=== PATIENT | male | born 1990 | race Hispanic/Latino ===

== ENCOUNTER 2024-07-27 17:40 | Inpatient (IN) | payer BC ==
[~2024-07-27] VITALS: Ht 177.8 cm; Wt 182.9 kg
[2024-07-27] MEDS ORDERED: morPHINE 2 MG SYG IVP ONE (18:00)
[2024-07-27 18:02] LABS: ADD UA MICROSCOPIC YES; APPEARANCE,URINE CLEAR (CLEAR); BILIRUBIN,URINE NEGATIVE (NEGATIVE); COLOR,URINE YELLOW (YELLOW); GLUCOSE, URINE (UA) NEGATIVE (NEGATIVE); KETONES,URINE 40 mg/dL (NEGATIVE); LEUKOCYTE ESTERASE ,URINE NEGATIVE Leu/uL (NEGATIVE); NITRATE,URINE NEGATIVE (NEGATIVE); OCCULT BLOOD,URINE SMALL (NEGATIVE); PH,URINE 5.5 (5.0-8.0); PROTEIN,URINE 30 mg/dL (NEGATIVE); UROBILINOGEN,URINE 0.2 mg/dL (0.2-1.0)
[2024-07-27 18:03] LABS: MUCUS,URINE RARE LPF (None Seen); SQUAMOUS EPITHELIAL CELL,UR FEW /HPF (0-2)
--- NOTE | 2024-07-27 18:17 | NUR ---
PATIENT STATES HAS RECENTLY TAKEN TORADOL WITHOUT ANY ALLERGIC OR ADVERSE REACTIONS.
[2024-07-27] MEDS: 0.9%NACL 1000ML 1,000 ML IV ONE (18:18)
[2024-07-27] MEDS: hydroMORPHone 1 MG INJ IVP ONE (18:23)
[2024-07-27] MEDS: ketOROlac 15MG/ML VIAL (15MG/ML) IV ONE (18:23)
[2024-07-27 18:27] LABS: BASOPHILS # (AUTO) 0.06 K/uL (0.00-0.20); BASOPHILS % (AUTO) 0.6 % (0.0-5.0); EOSINOPHILS # (AUTO) 0.08 K/uL (0.00-0.70); EOSINOPHILS % (AUTO) 0.9 % (0.0-8.0); HEMATOCRIT 40.2 % (42-54); IMMATURE GRANULOCYTE ABSOLUTE 0.04 K/uL (0-1); LYMPHOCYTES # (AUTO) 2.3 K/uL (1.0-4.8); LYMPHOCYTES % (AUTO) 24.5 % (21.0-51.0); MEAN CORPUSCULAR HGB CONC 33.8 g/dL (32.0-36.0); MEAN CORPUSCULAR VOLUME 88.7 fL (79-99); MONOCYTES # (AUTO) 0.7 K/uL (0.1-1.0); NEUTROPHILS # (AUTO) 6.2 K/uL (1.8-7.7); NEUTROPHILS % (AUTO) 66.6 % (40.0-77.0); PLATELET COUNT (AUTO) 238 K/uL (130-400); RED BLOOD CELL COUNT(AUTO) 4.53 MIL/uL (4.50-6.20); RED CELL DISTRIBUTION WIDTH 13.4 % (11.0-15.5); WHITE BLOOD COUNT (AUTO) 9.4 K/uL (4.8-10.8)
[2024-07-27 18:36] LABS: CREATININE 1.4 mg/dL (0.5-1.3); POTASSIUM 3.7 mmol/L (3.5-5.1)
--- NOTE | 2024-07-27 19:24 | HMCIMG ---
ULTRASOUND RENAL LIMITED INDICATION: Polyarthritis/hydronephrosis evaluation TECHNIQUE: Routine ultrasound of the kidneys with grayscale and color Doppler imaging was performed in real-time, and subsequently made available for review. COMPARISON: None FINDINGS: Examination is limited by patient body habitus. The right kidney measures 13.4 x 6 0.5, 0.1 cm. No abnormal mass demonstrated. No evidence for hydronephrosis or shadowing stone. The left kidney measures 12.5 x 7.2 x 5.9 cm. No abnormal mass demonstrated. No evidence for hydronephrosis or shadowing stone. Urinary bladder is not fully distended. No free fluid demonstrated. IMPRESSION: Limitations as reported. No sonographic evidence for hydronephrosis or any evidence to suggest pyelonephritis.
--- NOTE | 2024-07-27 20:35 | ERN ---
General Chief Complaint: Flank Pain Stated Complaint: RT FLANK PAIN Time Seen by MD: 17:45 Time Seen by Midlevel: 17:45 Source: patient History of Present Illness Initial Comments The patient is a morbidly obese 34-year-old male with no significant past medical history presenting to the emergency department for evaluation of right flank pain. The patient was seen at an emergency department in [facility] where he was diagnosed with a 7 mm stone in the right ureter. He was discharged home on pain medication that has not helped him over the last 24 hours. He reports today with increased pain. Denies any other symptoms. Allergies: Coded Allergies: ibuprofen (Unverified Allergy, Unknown, 07/27/24) Past Medical History Past Medical History: Diabetes-Type II, High Cholesterol, Hypertension, Kidney Stone Past Surgical History: None ROS Dictation CONSTITUTIONAL: Negative except for HPI HEAD/FACE: Negative except for HPI EENT: Negative except for HPI RESPIRATORY: Negative except for HPI GASTROINTESTINAL/ABDOMINAL: Negative except for HPI GENITOURINARY: Negative except for HPI MUSCULOSKELETAL: Negative except for HPI INTEGUMENTARY: Negative except for HPI NEUROLOGICAL/PSYCH: Negative except for HPI HEMATOLOGIC/LYMPHATIC: Negative except for HPI All Systems Negative, Except as noted above. 13 point review of systems assessed and all negative except for above. Physical Exam Physical Exam Dictation Vital Signs reviewed General Appearance: Alert, oriented x 3, no acute distress, well developed, nourished. Head and Face: non-traumatic. Eyes: PERRL, pink conjunctivas, eyelid no trauma, anterior chamber with arcus senilis. Ears: Pinnas intact and no signs of trauma or erythema ear canals clear and no discharge TM no erythema Nose: No discharge, no bleeding. Oropharynx: Mouth normal, tongue pink, pharynx clear,no erythema, tonsils no exudates, no abscesses noted, mucous membrane moist Neck: Supple, non-tender, no thyromegaly, no masses, no JVD, no bruits Breast:Deferred Chest:No tenderness, no crepitus, no paradoxical movement, no retractions Lungs:Clear, well-ventilated, symmetric, no rales, no wheezing, no rhonchi, no stridor, good breath sounds bilaterally Heart: Regular rate, regular rhythm, no murmur, no gallops Vascular: no peripheral edema, Abdomen: Soft, positive bowel sounds, nondistended, no guarding, Right CVA tenderness, no rebound, no masses no hepatomegaly, no splenomegaly, no Evangelista's sign, no hernias. Rectal: Deferred Genital: Deferred Neurological: Normal speech, motor function intact, sensory function intact Musculoskeletal: Neck nontender, full range of motion, back nontender, full range of motion, Extremities: nontender, full range of motion Skin: Color pink, dry, no turgor, no rash, no lacerations, no abrasions, no contusions. Lymphatic: Deferred Results Laboratory and Microbiology Lab and Micro Result Laboratory Tests Test 07/27/24 17:54 07/27/24 18:12 Urine Color YELLOW (YELLOW) Urine Appearance CLEAR (CLEAR) Urine pH 5.5 (5.0-8.0) Urine Specific [place] 1.040 (1.001-1.031) Urine Protein 30 mg/dL (NEGATIVE) H Urine Glucose (UA) NEGATIVE mg/dL (NEGATIVE) Urine Ketones 40 mg/dL (NEGATIVE) H Urine Occult Blood SMALL (NEGATIVE) H Urine Nitrate NEGATIVE (NEGATIVE) Urine Bilirubin NEGATIVE mg/dL (NEGATIVE) Urine Urobilinogen 0.2 mg/dL (0.2-1.0) Urine Leukocyte Esterase NEGATIVE Xiomara/uL Urine RBC 6-10 /HPF (0-1) H Urine WBC 6-10 /HPF (0-1) H Urine Squamous Epithelial Cells FEW /HPF (0-2) Urine Bacteria None /HPF (None Seen) White Blood Count 9.4 K/uL (4.8-10.8) Red Blood Count 4.53 MIL/uL (4.50-6.20) Hemoglobin 13.6 g/dL (14.0-18.0) L Hematocrit 40.2 % (42-54) L Mean Corpuscular Volume 88.7 fL (79-99) Mean Corpuscular Hemoglobin 30.0 pg (27.0-33.0) Mean Corpuscular Hemoglobin Concent 33.8 g/dL (32.0-36.0) Red Cell Distribution Width 13.4 % (11.0-15.5) Platelet Count 238 K/uL (130-400) Mean Platelet Volume 10.1 fL (7.5-10.5) Immature Granulocyte % (Auto) 0.4 % (0-1) Neutrophils (%) (Auto) 66.6 % (40.0-77.0) Lymphocytes (%) (Auto) 24.5 % (21.0-51.0) Monocytes (%) (Auto) 7.0 % (3.0-13.0) Eosinophils (%) (Auto) 0.9 % (0.0-8.0) Basophils (%) (Auto) 0.6 % (0.0-5.0) Neutrophils # (Auto) 6.2 K/uL (1.8-7.7) Lymphocytes # (Auto) 2.3 K/uL (1.0-4.8) Monocytes # (Auto) 0.7 K/uL (0.1-1.0) Eosinophils # (Auto) 0.08 K/uL (0.00-0.70) Basophils # (Auto) 0.06 K/uL (0.00-0.20) Absolute Immature Granulocyte (auto 0.04 K/uL (0-1) Nucleated Red Blood Cells 0.0 % (0.0-0.19) Sodium Level 137 mmol/L (136-145) Potassium Level 3.7 mmol/L (3.5-5.1) Chloride Level 101 mmol/L (101-111) Carbon Dioxide Level 31 mmol/L (21-32) Blood Urea Nitrogen 13 mg/dL (7-18) Creatinine 1.4 mg/dL (0.5-1.3) H Glomerular Filtration Rate Calc 68 mL/min (>90) Random Glucose 105 mg/dL (70-105) Lactic Acid Level 1.9 mmol/L (0.8-2.5) Total Calcium 8.5 mg/dL (8.5-10.1) Labs Reviewed?: Yes MDM MDM: Differential diagnosis: Ureter stone, pyelonephritis, hydronephrosis, acute kidney injury Rationale: Tests considered and ordered secondary to shared decision making include: Previous outside records reviewed: Old ER visits. Risk of complication and/or morbidity or mortality of patient management: None Medications-Per medication reconciliation Need for hospitalization: Patient does meet criteria for hospitalization. Need for emergency major/minor surgery: No There are no social concerns with this patient. Prescription drug management Prescriptions will include symptomatic care Patient's prior external medical records from other ER visits were reviewed by me as indicated. Prior testing and results from previous visits were reviewed. Prior tests were taken into account with medical decision making and resource utilization, independent historian/historians were used to obtain complete medical history. I independently interpreted the test that were performed, results were reviewed by me and considered findings on radiology if ordered. Medical management and examination interpretation discussions were had by me with other qualified healthcare professionals as indicated for the patient's care. ED Course Orders Procedure Category Date Status Time Cbc With Differential LAB 07/27/24 Complete 17:51 Basic Metabolic Panel LAB 07/27/24 Complete 17:51 Urinalysis Profile LAB 07/27/24 Complete 17:51 Lactic Acid LAB 07/27/24 Complete 17:51 Morphine 2mg Syg PHA 07/27/24 Complete (Morphine 2mg Syg) 18:00 0.9%Nacl 1000ml (Ns PHA 07/27/24 Complete 1000ml) 18:00 Culture Urine ROXANA 07/27/24 Logged 18:04 Ketorolac PHA 07/27/24 Complete Tromethamine 15mg/Ml 18:30 Hydromorphone 1 Mg PHA 07/27/24 Complete Inj (Dilaudid 1mg Inj 18:30 [employer] 07/27/24 Resulted 18:34 Current Medications Medications (Trade) Dose Ordered Sig/Melita Route PRN Reason Start Time Stop Time Status Last Admin Dose Admin Hydromorphone HCl (DiLAUDid 1MG INJ) 1 mg ONCE ONCE IVP 07/27/24 18:30 07/27/24 18:31 DC 07/27/24 18:23 Ketorolac Tromethamine (toRADol) 15 mg ONCE ONCE IV 07/27/24 18:30 07/27/24 18:31 DC 07/27/24 18:23 Morphine Sulfate (morPHINE 2MG SYG) 2 mg ONCE ONCE IVP 07/27/24 18:00 07/27/24 18:11 DC Sodium Chloride 1,000 ml @ 0 mls/hr ONCE ONCE IV 07/27/24 18:00 07/27/24 18:01 DC 07/27/24 18:18 Vital Signs Date Time Temp Pulse Resp B/P (MAP) Pulse Ox O2 Delivery O2 Flow Rate FiO2 07/27/24 17:43 98.8 79 20 167/92 98 Room Air [place] [id number] [address] [id number] IMAGING REPORT Signed PATIENT: CHASIDY MCKEON MR#: [id number] : 1990 SEX: M AGE: 34 LOCATION: [facility] ORDER 34 STATUS: REG ER REPORT#: [id number] SERVICE 33 REASON: r/o pyelonephritis vs hydronephrosis secondary to ureter stone ORDERING PHYSICIAN: NEIL POST PROCEDURE: RETROLTD - US RETROPERITONEAL LTD ULTRASOUND RENAL LIMITED INDICATION: Polyarthritis/hydronephrosis evaluation TECHNIQUE: Routine ultrasound of the kidneys with grayscale and color Doppler imaging was performed in real-time, and subsequently made available for review. COMPARISON: None FINDINGS: Examination is limited by patient body habitus. The right kidney measures 13.4 x 6 0.5, 0.1 cm. No abnormal mass demonstrated. No evidence for hydronephrosis or shadowing stone. The left kidney measures 12.5 x 7.2 x 5.9 cm. No abnormal mass demonstrated. No evidence for hydronephrosis or shadowing stone. Urinary bladder is not fully distended. No free fluid demonstrated. IMPRESSION: Limitations as reported. No sonographic evidence for hydronephrosis or any evidence to suggest pyelonephritis. DICTATED BY: OLIVIA YARBROUGH MD DATE: 07/27/241918 ELECTRONICALLY SIGNED BY: OLIVIA YARBROUGH MD DATE: 07/27/241923 DX & DISP Disposition: Inpatient Decision to Admit Date: July 27, 2024 Departure Impression: Primary Impression: Intractable abdominal pain Additional Impression: Right ureteral stone Condition: Stable Referrals: [facility] RN (PCP) Time of Disposition: 20:34 I have reviewed the case, and I agree with, Diagnosis and Plan I performed the substantive portion of the visit. I have reviewed and personally made and approve the management plan that is documented in the note by myself or the BONG. I acknowledge for responsibility for the patient's management plan. NEIL POST July 27, 2024 20:35
[2024-07-27] MEDS ORDERED: TEMAZepam 15 MG CAPSULE PO PRN (21:30)
[2024-07-27] MEDS ORDERED: acetaMINOPHEN 325 MG TAB PO PRN (21:30)
[2024-07-27] MEDS ORDERED: LAbetaLOL 20MG SYG IV PRN (21:30)
[2024-07-27] MEDS ORDERED: acetaMINOPHEN 650 MG SUPPOSITORY RC PRN (21:30)
[2024-07-27] MEDS ORDERED: doCUSate SODIUM 100 MG CAP PO PRN (21:30)
--- NOTE | 2024-07-27 21:42 | HP ---
[facility] HISTORY AND PHYSICAL Date of Service: July 27, 2024 Time of Service: 21:41 PCP: Dr. Jess Nguyen PCP: Dr. Riddle and Dr. Julia Ramirez HISTORY OF PRESENT ILLNESS: Mr. Hodge is a morbidly obese 34-year-old male with with history of morbid obesity, DM type 2, hypercholesteremia, hypertension, kidney stone presented to ED for evaluation of right flank pain. The patient was seen at an emergency department in [facility] where he was diagnosed with a 7 mm stone in the right ureter. He was discharged home on pain medication that has not helped him over the last 24 hours. He reports today with increased pain which prompted the ED admission. The patient denied any other pain, problem or concern. Renal sonogram: No sonographic evidence for hydronephrosis or any evidence to suggest pyelonephritis. In ED the patient was administered NS1 L bolus, Dilaudid 1 mg IV, morphine 2 mg IV, and Toradol 15 mg IV. ED provider request patient be admitted with the diagnosis intractable abdominal pain and right ureteral stone. I went to assess the patient at bedside the patient appeared comfortable, breathing was even unlabored, in no distress. Patient reports feeling better after the medications administrations. I informed patient of labs, diagnostics, and plan of care. He verbalized understanding and is in agreement with the plan. Plan and assessment are listed below. REVIEW OF SYSTEMS 12-point ROS reviewed with patient. All pertinent positives mentioned above. Otherwise negative, noncontributory, non-pertinent. PAST MEDICAL HISTORY: As mentioned above PAST SURGICAL HISTORY: None PAST SOCIAL HISTORY: Patient denies alcohol, tobacco, illicit drug use Coded Allergies: ibuprofen (Unverified Allergy, Unknown, 07/27/24) PHYSICAL EXAM GENERAL APPEARANCE: The patient is awake, alert, and oriented, in no acute cardiopulmonary distress. NEUROLOGICAL: Cranial nerves II-XII grossly intact. Motor is 5/5 in bilateral upper and lower extremities proximal to distal. No sensory deficits. HEENT: Face is symmetric. Pupils are equal and reactive. Extraocular movements are intact. NECK: Supple. No JVD. No thyromegaly. No submental, submandibular, pre- /postauricular, occipital or supraclavicular lymphadenopathy. CHEST: Normal chest expansion. No Telemetry. LUNGS: Absence of any rales, rhonchi or any wheezing. CARDIOVASCULAR: Regular. S1 and S2 normal. No appreciable rubs, murmurs or gallops. ABDOMEN: Morbid obese. Soft, nontender, and nondistended. There is no rebound, voluntary guarding, or rigidity. : Deferred. No Hernandez. EXTREMITIES: Non-edematous and not cyanotic. No clubbing. Good capillary refill. SKIN: No skin breakdown. Vital Sign (Last 24 Hours) 07/27/24 17:43 Temp 98.8 Pulse 79 Resp 20 B/P (MAP) 167/92 Pulse Ox 98 O2 Delivery Room Air LABS: Laboratory: Test 07/27/24 18:12 07/27/24 17:54 Range/Units White Blood Count 9.4 4.8-10.8 K/uL Red Blood Count 4.53 4.50-6.20 MIL/uL Hemoglobin 13.6 L 14.0-18.0 g/dL Hematocrit 40.2 L 42-54 % Mean Corpuscular Volume 88.7 79-99 fL Mean Corpuscular Hemoglobin 30.0 27.0-33.0 pg Mean Corpuscular Hemoglobin Concent 33.8 32.0-36.0 g/dL Red Cell Distribution Width 13.4 11.0-15.5 % Platelet Count 238 130-400 K/uL Mean Platelet Volume 10.1 7.5-10.5 fL Immature Granulocyte % (Auto) 0.4 0-1 % Neutrophils (%) (Auto) 66.6 40.0-77.0 % Lymphocytes (%) (Auto) 24.5 21.0-51.0 % Monocytes (%) (Auto) 7.0 3.0-13.0 % Eosinophils (%) (Auto) 0.9 0.0-8.0 % Basophils (%) (Auto) 0.6 0.0-5.0 % Neutrophils # (Auto) 6.2 1.8-7.7 K/uL Lymphocytes # (Auto) 2.3 1.0-4.8 K/uL Monocytes # (Auto) 0.7 0.1-1.0 K/uL Eosinophils # (Auto) 0.08 0.00-0.70 K/uL Basophils # (Auto) 0.06 0.00-0.20 K/uL Absolute Immature Granulocyte (auto 0.04 0-1 K/uL Nucleated Red Blood Cells 0.0 0.0-0.19 % Sodium Level 137 136-145 mmol/L Potassium Level 3.7 3.5-5.1 mmol/L Chloride Level 101 101-111 mmol/L Carbon Dioxide Level 31 21-32 mmol/L Blood Urea Nitrogen 13 7-18 mg/dL Creatinine 1.4 H 0.5-1.3 mg/dL Glomerular Filtration Rate Calc 68 >90 mL/min Random Glucose 105 70-105 mg/dL Lactic Acid Level 1.9 0.8-2.5 mmol/L Total Calcium 8.5 8.5-10.1 mg/dL Urine Color YELLOW YELLOW Urine Appearance CLEAR CLEAR Urine pH 5.5 5.0-8.0 Urine Specific [place] 1.040 H 1.001-1.031 Urine Protein 30 H NEGATIVE mg/dL Urine Glucose (UA) NEGATIVE NEGATIVE mg/dL Urine Ketones 40 H NEGATIVE mg/dL Urine Occult Blood SMALL H NEGATIVE Urine Nitrate NEGATIVE NEGATIVE Urine Bilirubin NEGATIVE NEGATIVE mg/dL Urine Urobilinogen 0.2 0.2-1.0 mg/dL Urine Leukocyte Esterase NEGATIVE NEGATIVE Xiomara/uL Urine RBC 6-10 H 0-1 /HPF Urine WBC 6-10 H 0-1 /HPF Urine Squamous Epithelial Cells FEW 0-2 /HPF Urine Bacteria None None Seen /HPF Current Medications Medications (Trade) Dose Ordered Sig/Melita Route PRN Reason Start Time Stop Time Status Last Admin Dose Admin Acetaminophen (TYLenol 325MG TAB) 650 mg Q6H PRN PO FEVER/MILD PAIN LEVEL 1-3 07/27/24 21:30 08/26/24 21:29 UNV Acetaminophen (TYLenol 650MG SUPPOSITORY) 650 mg Q6H PRN RC FEVER / MILD PAIN 1-3 IF NPO 07/27/24 21:30 08/26/24 21:29 UNV Acetaminophen/ Hydrocodone Bitart (NORco 5/325MG) 1 tab Q6H PRN PO MILD PAIN (1-3) 07/27/24 21:30 08/01/24 21:29 UNV Docusate Sodium (COLace 100MG CAP) 100 mg BID PRN PO c 07/27/24 21:30 08/26/24 21:29 UNV Insulin Human Regular (humuLIN R 100 UNIT/ML 3ML) INSULIN SLIDING SCAL... ACHS SQ 07/28/24 07:30 08/27/24 07:29 UNV Labetalol HCl (TRANdate 20MG SYG) 10 mg Q2H PRN IV SBP GREATER THAN 160 07/27/24 21:30 08/26/24 21:29 UNV Lactated Ringer's 1,000 ml @ 100 mls/hr Q10H IV 07/27/24 21:30 08/26/24 21:29 UNV Lactulose (Constulose 20gm/ 30ml Udcup) 20 gm Q6H PRN PO CONSTIPATION 07/27/24 21:30 08/26/24 21:29 UNV Ondansetron HCl (zoFRAN 4MG INJ) 4 mg Q6H PRN IVP NAUSEA/VOMITING 07/27/24 21:30 08/26/24 21:29 UNV Temazepam (restORIL 15 MG CAP) 15 mg HS PRN PO INSOMNIA/SLEEP 07/27/24 21:30 08/26/24 21:29 UNV DIAGNOSTICS / RADIOLOGY: [ ] ASSESSMENT: Nephrolithiasis, POA Intractable abdominal pain secondary to above. Anemia, POA Acute dehydration (elevated creatinine at 1.4, ketonuria) Acute kidney injury, POA, GFR 68 Proteinuria Hematuria Chronic problem list: DM type 2, hypercholesteremia, hypertension, kidney stones PLAN: Admit to medical floor. Start LR at 100 mL an hour. Start Flomax 0.4 mg p.o. Daily. Strain all urine. Consult urology in a.m.. Obtain CT abdomen and pelvis without contrast. Start lisinopril 20 mg p.o. b.i.d.. Start atorvastatin 40 mg p.o. daily. P.r.n. medications for: Pain management, nausea, vomiting fever, hypertension, constipation Monitor renal and liver function. Monitor electrolytes and treat accordingly. Oxygen as needed to keep SpO2 equal to greater than 92%. Glucometer checks a.c. and HS with insulin regular sliding scale coverage as needed per protocol. Blood pressure checks every4 hours and as needed. Reconcile home medications once available. A.m. labs: CBC, BNP, Mag, phos, TSH, A1c. GI and DVT prophylaxis: Pepcid and Lovenox ADVANCED CARE PLANNING 1. Which of the following were discussed? Hospice Care - No Therapeutic options - Yes Advance Directives - Yes Other discussions - 2. Discussed with who? Patient 3. Voluntary nature of this service was explained to the patient? Yes 4. Amount of time spent - _ over 35 minutes 5. Reviewed by Physician? (if this service was performed by BONG) Yes ATTESTATION BY PHYSICIAN I have seen and examined the patient. I reviewed the documentation, medical decision making, and treatment plan as noted by the mid-level provider above. I agree with the findings and plan of care. CARLOS CHO [facility] July 27, 2024 21:41
[2024-07-27] MEDS: LACTATED RINGERS 1000ML 1,000 ML IV SCH (22:49)
[2024-07-28] VITALS (9 sets, daily range): BP systolic 114–162; BP diastolic 73–93; PULSE 67–77; RESP 19–20; TEMP 97.8–98.7; O2SAT 95–98
--- NOTE | 2024-07-28 00:59 | NUR ---
REPORT GIVEN TO JES PORTILLO
[2024-07-28] MEDS ORDERED: ketOROlac 30MG VIAL (30MG/ML) IM PRN (01:00)
--- NOTE | 2024-07-28 01:07 | NUR ---
per Raymundo, LINDSEY Cisneros is busy and will call when ready to bring pt to CT
[2024-07-28] MEDS ORDERED: LISI20TA24 PO (01:17)
[2024-07-28] MEDS ORDERED: METF-910 PO (01:17)
[2024-07-28] MEDS ORDERED: ATOR20TA65 PO (01:17)
[2024-07-28] MEDS ORDERED: TAMS-55 PO (01:18)
[2024-07-28] MEDS ORDERED: NAPR-1194 PO (01:21)
--- NOTE | 2024-07-28 02:33 | NUR ---
PATIENT RETURNED FROM CT SCAN
[2024-07-28] MEDS: ketOROlac 30MG VIAL (30MG/ML) IV PRN (05:29)
[2024-07-28] MEDS: INSULIN humuLIN R 100 UNIT/ML 3ML SQ SCH (05:51)
[2024-07-28 06:43] LABS: HEMATOCRIT 39.9 % (42-54); MEAN CORPUSCULAR HEMOGLOBIN 30.6 pg (27.0-33.0); MEAN CORPUSCULAR HGB CONC 34.6 g/dL (32.0-36.0); MEAN CORPUSCULAR VOLUME 88.5 fL (79-99); RED BLOOD CELL COUNT(AUTO) 4.51 MIL/uL (4.50-6.20); RED CELL DISTRIBUTION WIDTH 13.5 % (11.0-15.5); WHITE BLOOD COUNT (AUTO) 8.6 K/uL (4.8-10.8)
[2024-07-28] MEDS ORDERED: ketOROlac 30MG VIAL (30MG/ML) IV PRN (07:00)
[2024-07-28 07:41] LABS: CREATININE 1.3 mg/dL (0.5-1.3); MAGNESIUM 1.9 mg/dL (1.80-2.40); PHOSPHORUS 3.5 mg/dL (2.5-4.9); POTASSIUM 3.9 mmol/L (3.5-5.1); THYROID STIMULATING HORMONE 1.24 uIU/mL (0.36-3.74)
[2024-07-28] MEDS: ENOXAPARIN SODIUM 40 MG/0.4 ML SYRINGE SQ SCH (08:27)
[2024-07-28] MEDS: tamSULOsin HCL 0.4 MG CAP.ER.24H PO SCH (08:27)
[2024-07-28] MEDS: FAMOTIDINE 20MG TAB PO SCH (08:27)
[2024-07-28] MEDS: LISINOPRIL 20 MG TABLET PO SCH (08:32)
--- NOTE | 2024-07-28 08:32 | HMCIMG ---
CT ABDOMEN PELVIS WITHOUT CONTRAST Clinical Information: intractable abdominal pain, hx renal stones Comparison: CT Dose Index (CTDI): 28.40 mGy Dose Length Product (DLP): 1536.00 total mGy-cm PROTOCOL: Routine noncontrast helical scanning of the abdomen and pelvis was performed at 5mm collimation. Findings: There is a Right ureteropelvic junction calculus measuring 7 mm causing mild right hydronephrosis. The contralateral kidney is unremarkable. The lung bases are clear. The stomach is unremarkable. It shows no wall thickening. No gross ulceration is seen. It is not overly distended. There are no surrounding inflammatory changes. No wall lesions are identified to suggest cancer. The spleen is unremarkable. It is not enlarged. The pancreas shows normal anatomy. It is not fatty replaced. It shows no lesions. The pancreatic duct is not dilated. The gallbladder is unremarkable. It shows no cholelithiasis. The gallbladder wall is normal in thickness. There is no pericholecystic fluid. The is no acute or chronic inflammation noted. The adrenal glands are unremarkable. There is no enlargement. No lesions are noted. The liver is unremarkable. It shows no focal masses. The appendix is unremarkable. It shows no evidence of inflammation. No appendicolith is seen. The small bowel is unremarkable. There is no evidence of dilatation to suggest obstruction. No evidence of adynamic ileus is seen. There is no small bowel wall thickening to suggest enteritis. The colon is unremarkable. The urinary bladder is unremarkable. There is no wall thickening to suggest tumor or inflammation. There are no intraluminal calculi. There are no diverticula. There is no evidence of chronic bladder outlet obstruction. There is no evidence of urinary bladder distention to suggest urinary retention. The other pelvic structures are unremarkable. The bony and vascular structures are unremarkable for the patient's age. IMPRESSION: Urinary tract calculus causing obstruction. This study was performed using dose reduction techniques to include automated exposure control and/or adjustment of the mA and/or kV according to patient size.
--- NOTE | 2024-07-28 11:06 | NUR ---
DCP:HOME Pt currently lives in a home with her brother and sister Hanna Hodge [phone]. Pt did not report any insecurities with retirement, food, and/or utilities. Pt does not have any DME, home health, or provider services. PCP is Jess Nguyen and uses [facility] [address]. At [place] pt wants to return home and family will assist with transportation. Addendum: 07/28/24 at 1110 by MELISSA OSEI SS Amended: Links added.
--- NOTE | 2024-07-28 11:10 | EKG ---
[facility] Test Date: 2024-07-27 Test Time: 21:54:19 Pat Name: CHASIDY MCKEON Department: [facility] Room: 403 1 Gender: M [employer] Inspector: [id number] : 1990 Requested By: CARLOS CHO Order Number: [id number] Reading MD: Ulysses Sevilla Measurements Intervals [place] Rate: 62 P: 36 VT: 153 QRS: 7 QRSD: 94 T: 27 QT: 395 QTc: 401 Interpretive Statements Sinus arrhythmia No previous ECG available for comparison Electronically Signed On 07-28-2024 21:25:51 CDT by Ulysses Sevilla Please click the below link to view image of tracing.
--- NOTE | 2024-07-28 14:40 | PN ---
[facility] PROGRESS NOTE Date of Service: July 28, 2024 Time of Service: 14:24 SUBJECTIVE: Mr. Mckeon is a morbidly obese 34-year-old male with with history of morbid obesity, DM type 2, hypercholesteremia, hypertension, kidney stone presented to ED for evaluation of right flank pain. The patient was seen at an emergency department in [facility] 2 days back where he was diagnosed with a 7 mm stone in the right ureter. He was discharged home on pain medication that has not helped him over the last 24 hours. He reports today with increased pain which prompted the ED admission. The patient denied any other pain, problem or concern. Renal sonogram: No sonographic evidence for hydronephrosis or any evidence to plata ggest pyelonephritis. In ED the patient was administered NS1 L bolus, Dilaudid 1 mg IV, morphine 2 mg IV, and Toradol 15 mg IV. Patient was admitted with the diagnosis intractable abdominal pain and right ureteral stone. 07/28/24 patient was seen and examined today morning. His family is at the bedside. He does not have the flank pain at the moment. He received IV Toradol for the pain. He denies hematuria. CT abdomen and pelvis showed right ureteropelvic junction calculus measuring 7:00 a.m. causing mild right hydronephrosis. Vitals are stable. Kidney functions are improving. Creatinine went down from 1.4 to 1.3. Urology consult requested and pending evaluation. REVIEW OF SYSTEMS CONSTITUTIONAL: Denies fevers, chills, or night sweats. No unintentional weight loss reported. NEUROLOGICAL: Denies headache, amaurosis fugax, motor weakness, sensory deficit, vertigo/spinning sensation, gait abnormalities, or tremors. ENT: No hearing loss, otalgia, otorrhea, rhinitis, rhinorrhea, hoarseness, or sore throat. CARDIOVASCULAR: Denies any exertional angina, dyspnea on exertion, orthopnea, paroxysmal nocturnal dyspnea, palpitations, life-threatening arrhythmias, claudication. Complains of chest discomfort PULMONARY: Denies any shortness of breath, cough, phlegm/sputum, hemoptysis, pleuritic chest pain. SLEEP: Denies morning headaches, daytime somnolence or napping. Denies difficulty falling asleep, staying asleep, waking from sleep. Denies knowledge of snoring. GASTROINTESTINAL: Denies any type of dysphagia to either liquids or solids. Denies nausea, vomiting, pyrosis, early satiety, abdominal pain, diarrhea, constipation, or changes in stool consistency or caliber. Denies coffee-ground emesis, hematemesis, hematochezia, or melanotic stools. GENITOURINARY: Denies frequency, urgency, nocturia, hematuria or incontinence (Storage/Irritative symptoms.) Low urinary stream, straining to void, urinary intermittency or hesitancy, splitting of the voiding stream, terminal dribbling. ENDOCRINOLOGIC: Denies polyuria, polydipsia, polyphagia or heat/cold intolerances. HEMATOLOGIC: Denies thrombophilia/previous clots, or coagulopathy/bleeding disorders. ONCOLOGIC: Denies personal history of malignancy. DERMATOLOGIC: Denies rashes or pruritus. PSYCHIATRIC: Denies any suicidal or homicidal ideation. Denies hallucinations. PHYSICAL EXAM GENERAL APPEARANCE: The patient is awake, alert, and oriented, in no acute cardiopulmonary distress. NEUROLOGICAL: Cranial nerves II-XII grossly intact. Motor is 5/5 in bilateral upper and lower extremities proximal to distal. No sensory deficits. HEENT: Face is symmetric. Pupils are equal and reactive. Extraocular movements are intact. NECK: Supple. No JVD. No thyromegaly. No submental, submandibular, pre- /postauricular, occipital or supraclavicular lymphadenopathy. CHEST: Normal chest expansion. No Telemetry. LUNGS: Absence of any rales, rhonchi or any wheezing. CARDIOVASCULAR: Regular. S1 and S2 normal. No appreciable rubs, murmurs or gallops. ABDOMEN: Morbid obese. Soft, nontender, and nondistended. There is no rebound, voluntary guarding, or rigidity. : Deferred. No Hernandez. EXTREMITIES: Non-edematous and not cyanotic. No clubbing. Good capillary refi ll. SKIN: No skin breakdown. Vital Signs (last 8hr) Date Time Temp Pulse Resp B/P (MAP) Pulse Ox O2 Delivery O2 Flow Rate FiO2 07/28/24 12:00 97.9 72 20 157/93 99 Room Air 21 07/28/24 08:00 98.2 69 20 114/73 98 Room Air 21 LABS: Laboratory: Test 07/28/24 11:12 07/28/24 06:38 07/27/24 18:12 07/27/24 17:54 Range/Units Whole Blood Glucose 100 70-110 MG/DL White Blood Count 8.6 4.8-10.8 K/uL Red Blood Count 4.51 4.50-6.20 MIL/uL Hemoglobin 13.8 L 14.0-18.0 g/dL Hematocrit 39.9 L 42-54 % Mean Corpuscular Volume 88.5 79-99 fL Mean Corpuscular Hemoglobin 30.6 27.0-33.0 pg Mean Corpuscular Hemoglobin Concent 34.6 32.0-36.0 g/dL Red Cell Distribution Width 13.5 11.0-15.5 % Platelet Count 221 130-400 K/uL Mean Platelet Volume 10.2 7.5-10.5 fL Nucleated Red Blood Cells 0.0 0.0-0.19 % Sodium Level 134 L 136-145 mmol/L Potassium Level 3.9 3.5-5.1 mmol/L Chloride Level 101 101-111 mmol/L Carbon Dioxide Level 25 21-32 mmol/L Blood Urea Nitrogen 12 7-18 mg/dL Creatinine 1.3 0.5-1.3 mg/dL Glomerular Filtration Rate Calc 74 >90 mL/min Random Glucose 99 70-105 mg/dL Total Calcium 8.0 L 8.5-10.1 mg/dL Phosphorus Level 3.5 2.5-4.9 mg/dL Magnesium Level 1.90 1.80-2.40 mg/dL Thyroid Stimulating Hormone (TSH) 1.24 0.36-3.74 uIU/mL Immature Granulocyte % (Auto) 0.4 0-1 % Neutrophils (%) (Auto) 66.6 40.0-77.0 % Lymphocytes (%) (Auto) 24.5 21.0-51.0 % Monocytes (%) (Auto) 7.0 3.0-13.0 % Eosinophils (%) (Auto) 0.9 0.0-8.0 % Basophils (%) (Auto) 0.6 0.0-5.0 % Neutrophils # (Auto) 6.2 1.8-7.7 K/uL Lymphocytes # (Auto) 2.3 1.0-4.8 K/uL Monocytes # (Auto) 0.7 0.1-1.0 K/uL Eosinophils # (Auto) 0.08 0.00-0.70 K/uL Basophils # (Auto) 0.06 0.00-0.20 K/uL Absolute Immature Granulocyte (auto 0.04 0-1 K/uL Lactic Acid Level 1.9 0.8-2.5 mmol/L Urine Color YELLOW YELLOW Urine Appearance CLEAR CLEAR Urine pH 5.5 5.0-8.0 Urine Specific [place] 1.040 H 1.001-1.031 Urine Protein 30 H NEGATIVE mg/dL Urine Glucose (UA) NEGATIVE NEGATIVE mg/dL Urine Ketones 40 H NEGATIVE mg/dL Urine Occult Blood SMALL H NEGATIVE Urine Nitrate NEGATIVE NEGATIVE Urine Bilirubin NEGATIVE NEGATIVE mg/dL Urine Urobilinogen 0.2 0.2-1.0 mg/dL Urine Leukocyte Esterase NEGATIVE NEGATIVE [place]/uL Urine RBC 6-10 H 0-1 /HPF Urine WBC 6-10 H 0-1 /HPF Urine Squamous Epithelial Cells FEW 0-2 /HPF Urine Bacteria None None Seen /HPF Current Medications Medications (Trade) Dose Ordered Sig/Melita Route PRN Reason Start Time Stop Time Status Last Admin Dose Admin Acetaminophen (TYLenol 325MG TAB) 650 mg Q6H PRN PO FEVER/MILD PAIN LEVEL 1-3 07/27/24 21:30 08/26/24 21:29 Acetaminophen (TYLenol 650MG SUPPOSITORY) 650 mg Q6H PRN RC FEVER / MILD PAIN 1-3 IF NPO 07/27/24 21:30 08/26/24 21:29 Acetaminophen/ Hydrocodone Bitart (NORco 5/325MG) 1 tab Q6H PRN PO PAIN LEVEL 4 TO 6 07/27/24 21:30 08/01/24 21:29 Acetaminophen/ Hydrocodone Bitart (NORco 5/325MG) 2 tab Q6H PRN PO 710 07/27/24 22:00 08/01/24 21:59 Atorvastatin Calcium (LIPItor 40MG) 40 mg HS PO 07/28/24 21:00 08/27/24 20:59 Docusate Sodium (COLace 100MG CAP) 100 mg BID PRN PO c 07/27/24 21:30 08/26/24 21:29 Enoxaparin Sodium (Lovenox) 40 mg DAILY SQ 07/28/24 09:00 08/27/24 08:59 07/28/24 08:27 40 MG Famotidine (Pepcid 20mg Tab) 20 mg BID PO 07/28/24 09:00 08/27/24 08:59 07/28/24 08:27 20 MG Insulin Human Regular (humuLIN R 100 UNIT/ML 3ML) INSULIN SLIDING SCAL... ACHS SQ 07/28/24 07:30 08/27/24 07:29 Ketorolac Tromethamine (toRADol) 30 mg Q6H PRN IM SEVERE PAIN (7-10) 07/28/24 01:00 07/28/24 02:42 DC Ketorolac Tromethamine (toRADol) 30 mg Q6H PRN IV SEVERE PAIN (7-10) 07/28/24 05:00 08/02/24 04:59 07/28/24 05:29 30 MG Ketorolac Tromethamine (toRADol) 30 mg Q6H PRN IV SEVERE PAIN (7-10) 07/28/24 07:00 07/28/24 05:17 DC Labetalol HCl (TRANdate 20MG SYG) 10 mg Q2H PRN IV SBP GREATER THAN 160 07/27/24 21:30 08/26/24 21:29 Lactated Ringer's 1,000 ml @ 100 mls/hr Q10H IV 07/27/24 21:30 08/26/24 21:29 07/28/24 07:30 100 MLS/HR Lactulose (Constulose 20gm/ 30ml Udcup) 20 gm Q6H PRN PO CONSTIPATION 07/27/24 21:30 08/26/24 21:29 Lisinopril (Prinivil 20mg) 20 mg BID PO 07/28/24 09:00 08/27/24 08:59 Ondansetron HCl (zoFRAN 4MG INJ) 4 mg Q6H PRN IVP NAUSEA/VOMITING 07/27/24 21:30 08/26/24 21:29 Tamsulosin HCl (FloMAX) 0.4 mg DAILY PO 07/28/24 09:00 08/27/24 08:59 07/28/24 08:27 0.4 MG Temazepam (restORIL 15 MG CAP) 15 mg HS PRN PO INSOMNIA/SLEEP 07/27/24 21:30 08/26/24 21:29 DIAGNOSTICS / RADIOLOGY: [place] [address] [place] [address] IMAGING REPORT Signed PATIENT: CHASIDY MCKEON MR#: [id number] : 1990 SEX: M AGE: 34 LOCATION: 4AH ORDER STATUS: ADM IN REPORT#: [id number] SERVICE REASON: intractable abdominal pain, hx renal stones ORDERING PHYSICIAN: CARLOS CHO DELIVERY ASSISTANT PROCEDURE: ABD PEL WO - CT ABDOMEN/PELVIS W/O CONTRAST CT ABDOMEN PELVIS WITHOUT CONTRAST Clinical Information: intractable abdominal pain, hx renal stones Comparison: CT Dose Index (CTDI): 28.40 mGy Dose Length Product (DLP): 1536.00 total mGy-cm PROTOCOL: Routine noncontrast helical scanning of the abdomen and pelvis was performed at 5mm collimation. Findings: There is a Right ureteropelvic junction calculus measuring 7 mm causing mild right hydronephrosis. The contralateral kidney is unremarkable. The lung bases are clear. The stomach is unremarkable. It shows no wall thickening. No gross ulceration is seen. It is not overly distended. There are no surrounding inflammatory changes. No wall lesions are identified to suggest cancer. The spleen is unremarkable. It is not enlarged. The pancreas shows normal anatomy. It is not fatty replaced. It shows no lesions. The pancreatic duct is not dilated. The gallbladder is unremarkable. It shows no cholelithiasis. The gallbladder wall is normal in thickness. There is no pericholecystic fluid. The is no acute or chronic inflammation noted. The adrenal glands are unremarkable. There is no enlargement. No lesions are noted. The liver is unremarkable. It shows no focal masses. The appendix is unremarkable. It shows no evidence of inflammation. No appendicolith is seen. The small bowel is unremarkable. There is no evidence of dilatation to suggest obstruction. No evidence of adynamic ileus is seen. There is no small bowel wall thickening to suggest enteritis. The colon is unremarkable. The urinary bladder is unremarkable. There is no wall thickening to suggest tumor or inflammation. There are no intraluminal calculi. There are no diverticula. There is no evidence of chronic bladder outlet obstruction. There is no evidence of urinary bladder distention to suggest urinary retention. The other pelvic structures are unremarkable. The bony and vascular structures are unremarkable for the patient's age. IMPRESSION: Urinary tract calculus causing obstruction. This study was performed using dose reduction techniques to include automated exposure control and/or adjustment of the mA and/or kV according to patient size. DICTATED BY: ELENA STRONG MD DATE: 07/28/24825 ELECTRONICALLY SIGNED BY: ELENA STRONG MD DATE: 07/28/24831 [place] [id number] [place] [id number] IMAGING REPORT Signed PATIENT: CHASIDY MCKEON MR#: [id number] : 1990 SEX: M AGE: 34 LOCATION: [facility] ORDER 34 STATUS: REG REPORT#: [id number] SERVICE 33 REASON: r/o pyelonephritis vs hydronephrosis secondary to ureter stone ORDERING PHYSICIAN: NEIL POST PROCEDURE: RETROLTD - US RETROPERITONEAL LTD ULTRASOUND RENAL LIMITED INDICATION: Polyarthritis/hydronephrosis evaluation TECHNIQUE: Routine ultrasound of the kidneys with grayscale and color Doppler imaging was performed in real-time, and subsequently made available for review. COMPARISON: None FINDINGS: Examination is limited by patient body habitus. The right kidney measures 13.4 x 6 0.5, 0.1 cm. No abnormal mass demonstrated. No evidence for hydronephrosis or shadowing stone. The left kidney measures 12.5 x 7.2 x 5.9 cm. No abnormal mass demonstrated. No evidence for hydronephrosis or shadowing stone. Urinary bladder is not fully distended. No free fluid demonstrated. IMPRESSION: Limitations as reported. No sonographic evidence for hydronephrosis or any evidence to suggest pyelonephritis. DICTATED BY: OLIVIA YARBROUGH MD DATE: 07/27/241918 ELECTRONICALLY SIGNED BY: OLIVIA YARBROUGH MD DATE: 07/27/241923 ASSESSMENT: Nephrolithiasis, POA Intractable abdominal pain secondary to nephrolithiasis Anemia, POA Acute dehydration (elevated creatinine at 1.4, ketonuria) Acute kidney injury, POA, GFR 68 Proteinuria Hematuria Chronic problem list: DM type 2, hypercholesteremia, hypertension, kidney stones Morbid obesity PLAN: We will continue to monitor the patient on medical floor. Nephrolithiasis, POA Continue LR at 100 mL an hour. Continue Flomax 0.4 mg p.o. Daily. Continue to Strain all urine. Renal ultrasound unremarkable CT abdomen and pelvis showed right ureteropelvic junction calculus of 7 mm causing mild right hydronephrosis Urology consult requested and pending evaluation. Intractable abdominal pain secondary to nephrolithiasis Continue Toradol and [place] as needed for pain Anemia, POA Hemoglobin is 13.8 No further interventions to be done Acute kidney injury, POA, GFR 68 Acute dehydration (elevated creatinine at 1.4, ketonuria) Kidney functions are improving. BUN 12 and create went down from 1.4 To 1.3 Continue IV fluids Avoid nephrotoxic drugs. Diabetes mellitus type 2 Glucometer checks a.c. and HS with insulin regular sliding scale coverage as needed per protocol. Hypoglycemia protocol Hypertension Continue lisinopril 20 mg p.o. b.i.d. IV hydralazine 10 mg p.r.n. if systolic blood pressure above 160 Hypercholesteremia Continue atorvastatin 40 mg p.o. daily. TSH 1.24 P.r.n. medications for: Pain management, nausea, vomiting fever, hypertension, constipation GI and DVT prophylaxis: Pepcid and Lovenox ATTESTATION BY PHYSICIAN I have seen and examined the patient. I reviewed the documentation, medical decision making, and treatment plan as noted by the resident provider above. I agree with the findings and plan of care. Garfield Ramirez MD, KRUPALI P MD July 28, 2024 14:40
[2024-07-28] MEDS: HYDROcodone/APAP 5/325 1 TAB TABLET PO PRN ×2 (18:35→23:53)
[2024-07-28] MEDS: LACTULOSE 20 GM/30 ML UDCUP PO PRN (18:37)
[2024-07-28] MEDS: atorVAStatin 40 MG TABLET PO SCH (21:25)
[2024-07-28] MEDS: PEG 3350/NA SULF,BICARB,CL/KCL 4000 ML SOLN PO ONE (21:27)
[2024-07-28] MEDS: ondanSETRON 4MG INJ IVP PRN (23:30)
[2024-07-29] VITALS (26 sets, daily range): BP systolic 111–166; BP diastolic 61–107; PULSE 54–85; RESP 14–21; TEMP 97.5–99.3; O2SAT 91
[2024-07-29 04:55] LABS: BASOPHILS # (AUTO) 0.05 K/uL (0.00-0.20); BASOPHILS % (AUTO) 0.7 % (0.0-5.0); EOSINOPHILS # (AUTO) 0.17 K/uL (0.00-0.70); EOSINOPHILS % (AUTO) 2.3 % (0.0-8.0); HEMATOCRIT 38.6 % (42-54); IMMATURE GRANULOCYTE ABSOLUTE 0.02 K/uL (0-1); LYMPHOCYTES # (AUTO) 2.4 K/uL (1.0-4.8); LYMPHOCYTES % (AUTO) 33.2 % (21.0-51.0); MEAN CORPUSCULAR HEMOGLOBIN 30.3 pg (27.0-33.0); MEAN CORPUSCULAR HGB CONC 33.9 g/dL (32.0-36.0); MEAN CORPUSCULAR VOLUME 89.4 fL (79-99); MONOCYTES # (AUTO) 0.6 K/uL (0.1-1.0); MONOCYTES % (AUTO) 8.8 % (3.0-13.0); NEUTROPHILS % (AUTO) 54.7 % (40.0-77.0); PLATELET COUNT (AUTO) 199 K/uL (130-400); RED BLOOD CELL COUNT(AUTO) 4.32 MIL/uL (4.50-6.20); RED CELL DISTRIBUTION WIDTH 13.5 % (11.0-15.5); WHITE BLOOD COUNT (AUTO) 7.3 K/uL (4.8-10.8)
--- NOTE | 2024-07-29 05:32 | CONS ---
REQUESTING PHYSICIAN: Ladarius Riddle MD REASON FOR CONSULTATION: Right flank pain. HISTORY OF PRESENT ILLNESS: A 34-year-old morbidly obese male with a 3-day history of progressive worsening right flank pain, presents to the Emergency Room. CT scan shows a 7 mm x 4 mm proximal ureteric stone with mild hydronephrosis. The patient had previously been seen in the Emergency Department in [facility] and discharged. His pain continues intermittently. Currently, he has had some Toradol and feels completely comfortable. He has not passed a stone. No gross hematuria. He may have had a renal colic episode about 5 years ago, which may have passed spontaneously. ALLERGIES: None. HOME MEDICATIONS: Listed below. PAST MEDICAL HISTORY: Diabetes, hyperglycemia, and hypertension. PAST SURGICAL HISTORY: Knee surgery. FAMILY HISTORY: No history of kidney stones. SOCIAL HISTORY: He works in a sand mine. No children. He does not smoke or drink. REVIEW OF SYSTEMS: He has no shortness of breath, no chest pain. His appetite is poor. He has no nausea or vomiting. No constipation or diarrhea. No headaches, dizziness or nosebleeds. No joint pain, joint swelling, limitation of movement, night sweats, fever, chills, or skin rash. MEDICATIONS: His medications in the Emergency Room include ketorolac, morphine, Dilaudid, Toradol. PHYSICAL EXAMINATION: GENERAL: Morbidly obese male, currently in no distress. VITAL SIGNS: Temperature is 98. Blood pressure is 130/80 with a pulse of 82. NECK: Has no adenopathy or supraclavicular masses palpable. LUNGS: Lung patel are clear to auscultation and percussion. HEART: Heart sounds are best heard in the fifth intercostal space. ABDOMEN: Obese, soft and nontender. BACK: Has mild CVA tenderness on the right hand side. EXTERNAL GENITALIA AND RECTAL: Deferred. LABORATORY DATA: Reviewed in detail. The urinalysis shows clear yellow urine, specific severity of 1.040, small amount of blood in the urine. Leukocyte esterase is negative. Few white cells. No bacteria. The patient's white count is 9, hematocrit is 40, platelet count is 238. Sodium is 139, potassium 3.7, BUN and creatinine are 13/1.3. IMAGING STUDIES: The patient's imaging studies are carefully reviewed, specifically he did have an ultrasound done that shows no hydronephrosis and CT scan shows mild fullness of on the right side with a 6 mm proximal ureteric stone. ASSESSMENT: * Renal colic, right side. * A 6 mm proximal ureteric on the right side. * Mild hydronephrosis on the right. * Morbid obesity. RECOMMENDATIONS: * IVP with tomograms. * If this shows high-grade obstruction, proceed with nephrostomy tube on the right hand side. * Ultimately once has been achieved, he will need definitive therapy for his kidney stone. * If this stone is visible on fluoroscopy, proceed with extracorporeal shock biopsy, otherwise, endoscopic Holmium laser lithotripsy and basketing or other modality will be recommended to the patient. The patient's questions were answered. Thank you for the opportunity of providing consultation on your patient. TID: [id number] RECEIPT: [id number]
[2024-07-29 07:22] LABS: CREATININE 1.6 mg/dL (0.5-1.3)
[2024-07-29] MEDS ORDERED: IOHEXOL 350 MG/ML 100ML INFUS..BTL IV ONE (09:19)
--- NOTE | 2024-07-29 10:04 | HMCIMG ---
EXCRETORY UROGRAM WITH TOMOGRAMS Reason for exam: rt ureteral stone. TECHNIQUE: Trust Advisor view of the abdomen obtained. Patient was then given 100 mL of Isovue 300% IV and sequential images of the abdomen obtained. FINDINGS: * Trust Advisor image demonstrates normal bowel gas pattern. There is evidence of a calculus in the right side, inferior to the renal collecting system on the right, measuring 9 mm. * Nephrotomograms demonstrate normal size, shape, and axis of the kidneys. There is delayed persistent nephrogram on the right side. The left collecting system is of normal course and caliber. The obstructive changes on the right are caused by a calculus noted in the filler feeder film, which is lodged within the ureteropelvic junction. * The left ureter is normal in caliber, but tortuous. It shows no intraluminal filling defects and no evidence of obstruction. It empties promptly. * The right collecting system is never opacified and there is no visualization of the ureter, consistent with complete obstruction. * Urinary bladder is normal. No extrinsic mass compression or filling defect noted. There is minimal postvoid residual. IMPRESSION: Obstructive changes right kidney as noted.
--- NOTE | 2024-07-29 12:43 | PN ---
CATAL[facility] PROGRESS NOTE Date of Service: July 29, 2024 Time of Service: 12:29 SUBJECTIVE: Mr. Mckeon is a morbidly obese 34-year-old male with with history of morbid obesity, DM type 2, hypercholesteremia, hypertension, kidney stone presented to ED for evaluation of right flank pain. The patient was seen at an emergency department in [facility] 2 days back where he was diagnosed with a 7 mm stone in the right ureter. He was discharged home on pain medication that has not helped him over the last 24 hours. He reports today with increased pain which prompted the ED admission. The patient denied any other pain, problem or concern. Renal sonogram: No sonographic evidence for hydronephrosis or any evidence to plata ggest pyelonephritis. In ED the patient was administered NS1 L bolus, Dilaudid 1 mg IV, morphine 2 mg IV, and Toradol 15 mg IV. Patient was admitted with the diagnosis intractable abdominal pain and right ureteral stone. 07/28/24 patient was seen and examined today morning. His family is at the bedside. He does not have the flank pain at the moment. He received IV Toradol for the pain. He denies hematuria. CT abdomen and pelvis showed right ureteropelvic junction calculus measuring 7:00 a.m. causing mild right hydronephrosis. Vitals are stable. Kidney functions are improving. Creatinine went down from 1.4 to 1.3. Urology consult requested and pending evaluation. 07/29/24 patient was seen and examined. He is complaining of right flank pain and pain scale is 6/10. He denies nausea, vomiting, hematuria or fever. Urology consult with Dr. Bay appreciated and ordered IVP which showed obstructive changes and calculus in right ureteropelvic junction measuring 9 mm. Pending on further recommendations from Urology. Patient remains NPO until we are hear back the plan from Urology. REVIEW OF SYSTEMS CONSTITUTIONAL: Denies fevers, chills, or night sweats. No unintentional weight loss reported. NEUROLOGICAL: Denies headache, amaurosis fugax, motor weakness, sensory deficit, vertigo/spinning sensation, gait abnormalities, or tremors. ENT: No hearing loss, otalgia, otorrhea, rhinitis, rhinorrhea, hoarseness, or sore throat. CARDIOVASCULAR: Denies any exertional angina, dyspnea on exertion, orthopnea, paroxysmal nocturnal dyspnea, palpitations, life-threatening arrhythmias, claudication. Complains of chest discomfort PULMONARY: Denies any shortness of breath, cough, phlegm/sputum, hemoptysis, pleuritic chest pain. SLEEP: Denies morning headaches, daytime somnolence or napping. Denies difficulty falling asleep, staying asleep, waking from sleep. Denies knowledge of snoring. GASTROINTESTINAL: Denies any type of dysphagia to either liquids or solids. Denies nausea, vomiting, pyrosis, early satiety, abdominal pain, diarrhea, constipation, or changes in stool consistency or caliber. Denies coffee-ground emesis, hematemesis, hematochezia, or melanotic stools. GENITOURINARY: Denies frequency, urgency, nocturia, hematuria or incontinence (Storage/Irritative symptoms.) Low urinary stream, straining to void, urinary intermittency or hesitancy, splitting of the voiding stream, terminal dribbling. ENDOCRINOLOGIC: Denies polyuria, polydipsia, polyphagia or heat/cold intolerances. HEMATOLOGIC: Denies thrombophilia/previous clots, or coagulopathy/bleeding disorders. ONCOLOGIC: Denies personal history of malignancy. DERMATOLOGIC: Denies rashes or pruritus. PSYCHIATRIC: Denies any suicidal or homicidal ideation. Denies hallucinations. PHYSICAL EXAM GENERAL APPEARANCE: The patient is awake, alert, and oriented, in no acute cardiopulmonary distress. NEUROLOGICAL: Cranial nerves II-XII grossly intact. Motor is 5/5 in bilateral upper and lower extremities proximal to distal. No sensory deficits. HEENT: Face is symmetric. Pupils are equal and reactive. Extraocular movements are intact. NECK: Supple. No JVD. No thyromegaly. No submental, submandibular, pre- /postauricular, occipital or supraclavicular lymphadenopathy. CHEST: Normal chest expansion. No Telemetry. LUNGS: Absence of any rales, rhonchi or any wheezing. CARDIOVASCULAR: Regular. S1 and S2 normal. No appreciable rubs, murmurs or gallops. ABDOMEN: Morbid obese. Tenderness on right flank. Soft, nontender, and nondistended. There is no rebound, voluntary guarding, or rigidity. : Deferred. No Hernandez. EXTREMITIES: Non-edematous and not cyanotic. No clubbing. Good capillary refill. SKIN: No skin breakdown. Vital Signs (last 8hr) Date Time Temp Pulse Resp B/P (MAP) Pulse Ox O2 Delivery O2 Flow Rate FiO2 07/29/24 11:31 98.1 54 21 156/79 98 Room Air 21 07/29/24 08:00 97.9 66 20 153/100 98 Room Air 21 LABS: Laboratory: Test 07/29/24 11:24 07/29/24 04:15 07/28/24 06:38 07/27/24 18:12 Range/Units Whole Blood Glucose 82 70-110 MG/DL Bedside Glucose Comment Notified Nurse White Blood Count 7.3 4.8-10.8 K/uL Red Blood Count 4.32 L 4.50-6.20 MIL/uL Hemoglobin 13.1 L 14.0-18.0 g/dL Hematocrit 38.6 L 42-54 % Mean Corpuscular Volume 89.4 79-99 fL Mean Corpuscular Hemoglobin 30.3 27.0-33.0 pg Mean Corpuscular Hemoglobin Concent 33.9 32.0-36.0 g/dL Red Cell Distribution Width 13.5 11.0-15.5 % Platelet Count 199 130-400 K/uL Mean Platelet Volume 10.5 7.5-10.5 fL Immature Granulocyte % (Auto) 0.3 0-1 % Neutrophils (%) (Auto) 54.7 40.0-77.0 % Lymphocytes (%) (Auto) 33.2 21.0-51.0 % Monocytes (%) (Auto) 8.8 3.0-13.0 % Eosinophils (%) (Auto) 2.3 0.0-8.0 % Basophils (%) (Auto) 0.7 0.0-5.0 % Neutrophils # (Auto) 4.0 1.8-7.7 K/uL Lymphocytes # (Auto) 2.4 1.0-4.8 K/uL Monocytes # (Auto) 0.6 0.1-1.0 K/uL Eosinophils # (Auto) 0.17 0.00-0.70 K/uL Basophils # (Auto) 0.05 0.00-0.20 K/uL Absolute Immature Granulocyte (auto 0.02 0-1 K/uL Nucleated Red Blood Cells 0.0 0.0-0.19 % Sodium Level 138 136-145 mmol/L Potassium Level 4.0 3.5-5.1 mmol/L Chloride Level 103 101-111 mmol/L Carbon Dioxide Level 28 21-32 mmol/L Blood Urea Nitrogen 18 7-18 mg/dL Creatinine 1.6 H 0.5-1.3 mg/dL Glomerular Filtration Rate Calc 58 >90 mL/min Random Glucose 90 70-105 mg/dL Total Calcium 7.9 L 8.5-10.1 mg/dL Phosphorus Level 3.5 2.5-4.9 mg/dL Magnesium Level 1.90 1.80-2.40 mg/dL Thyroid Stimulating Hormone (TSH) 1.24 0.36-3.74 uIU/mL Lactic Acid Level 1.9 0.8-2.5 mmol/L Test 07/27/24 17:54 Range/Units Urine Color YELLOW YELLOW Urine Appearance CLEAR CLEAR Urine pH 5.5 5.0-8.0 Urine Specific [place] 1.040 H 1.001-1.031 Urine Protein 30 H NEGATIVE mg/dL Urine Glucose (UA) NEGATIVE NEGATIVE mg/dL Urine Ketones 40 H NEGATIVE mg/dL Urine Occult Blood SMALL H NEGATIVE Urine Nitrate NEGATIVE NEGATIVE Urine Bilirubin NEGATIVE NEGATIVE mg/dL Urine Urobilinogen 0.2 0.2-1.0 mg/dL Urine Leukocyte Esterase NEGATIVE NEGATIVE [place]/uL Urine RBC 6-10 H 0-1 /HPF Urine WBC 6-10 H 0-1 /HPF Urine Squamous Epithelial Cells FEW 0-2 /HPF Urine Bacteria None None Seen /HPF Current Medications Medications (Trade) Dose Ordered Sig/Melita Route PRN Reason Start Time Stop Time Status Last Admin Dose Admin Acetaminophen (TYLenol 325MG TAB) 650 mg Q6H PRN PO FEVER/MILD PAIN LEVEL 1-3 07/27/24 21:30 08/26/24 21:29 Acetaminophen (TYLenol 650MG SUPPOSITORY) 650 mg Q6H PRN RC FEVER / MILD PAIN 1-3 IF NPO 07/27/24 21:30 08/26/24 21:29 Acetaminophen/ Hydrocodone Bitart (NORco 5/325MG) 1 tab Q6H PRN PO PAIN LEVEL 4 TO 6 07/27/24 21:30 08/01/24 21:29 07/28/24 18:35 1 TAB Acetaminophen/ Hydrocodone Bitart (NORco 5/325MG) 2 tab Q6H PRN PO 710 07/27/24 22:00 08/01/24 21:59 07/28/24 23:53 2 TAB Atorvastatin Calcium (LIPItor 40MG) 40 mg HS PO 07/28/24 21:00 08/27/24 20:59 07/28/24 21:25 40 MG Docusate Sodium (COLace 100MG CAP) 100 mg BID PRN PO c 07/27/24 21:30 08/26/24 21:29 Enoxaparin Sodium (Lovenox) 40 mg DAILY SQ 07/28/24 09:00 08/27/24 08:59 07/28/24 08:27 40 MG Famotidine (Pepcid 20mg Tab) 20 mg BID PO 07/28/24 09:00 08/27/24 08:59 07/28/24 21:25 20 MG Insulin Human Regular (humuLIN R 100 UNIT/ML 3ML) INSULIN SLIDING SCAL... ACHS SQ 07/28/24 07:30 08/27/24 07:29 Ketorolac Tromethamine (toRADol) 30 mg Q6H PRN IM SEVERE PAIN (7-10) 07/28/24 01:00 07/28/24 02:42 DC Ketorolac Tromethamine (toRADol) 30 mg Q6H PRN IV SEVERE PAIN (7-10) 07/28/24 05:00 08/02/24 04:59 07/29/24 08:17 30 MG Ketorolac Tromethamine (toRADol) 30 mg Q6H PRN IV SEVERE PAIN (7-10) 07/28/24 07:00 07/28/24 05:17 DC Labetalol HCl (TRANdate 20MG SYG) 10 mg Q2H PRN IV SBP GREATER THAN 160 07/27/24 21:30 08/26/24 21:29 Lactated Ringer's 1,000 ml @ 100 mls/hr Q10H IV 07/27/24 21:30 08/26/24 21:29 07/28/24 23:45 100 MLS/HR Lactulose (Constulose 20gm/ 30ml Udcup) 20 gm Q6H PRN PO CONSTIPATION 07/27/24 21:30 08/26/24 21:29 07/28/24 18:37 20 GM Lisinopril (Prinivil 20mg) 20 mg BID PO 07/28/24 09:00 08/27/24 08:59 07/28/24 21:26 20 MG Ondansetron HCl (zoFRAN 4MG INJ) 4 mg Q6H PRN IVP NAUSEA/VOMITING 07/27/24 21:30 08/26/24 21:29 07/28/24 23:30 4 MG Tamsulosin HCl (FloMAX) 0.4 mg DAILY PO 07/28/24 09:00 08/27/24 08:59 07/28/24 08:27 0.4 MG Temazepam (restORIL 15 MG CAP) 15 mg HS PRN PO INSOMNIA/SLEEP 07/27/24 21:30 08/26/24 21:29 DIAGNOSTICS / RADIOLOGY: [address] [address] IMAGING REPORT Signed PATIENT: CHASIDY MCKEON MR#: [id number] : 1990 SEX: M AGE: 34 LOCATION: [facility] ORDER 2300 STATUS: ADM IN REPORT#: [id number] SERVICE 0800 REASON: rt ureteral stone ORDERING PHYSICIAN: ADA BAY MD PROCEDURE: IVP - IVP W/WO TOMOGRAMS EXCRETORY UROGRAM WITH TOMOGRAMS Reason for exam: rt ureteral stone. TECHNIQUE: Child Life Assistant view of the abdomen obtained. Patient was then given 100 mL of Isovue 300% IV and sequential images of the abdomen obtained. FINDINGS: * Child Life Assistant image demonstrates normal bowel gas pattern. There is evidence of a calculus in the right side, inferior to the renal collecting system on the right, measuring 9 mm. * Nephrotomograms demonstrate normal size, shape, and axis of the kidneys. There is delayed persistent nephrogram on the right side. The left collecting system is of normal course and caliber. The obstructive changes on the right are caused by a calculus noted in the pilot submersible film, which is lodged within the ureteropelvic junction. * The left ureter is normal in caliber, but tortuous. It shows no intraluminal filling defects and no evidence of obstruction. It empties promptly. * The right collecting system is never opacified and there is no visualization of the ureter, consistent with complete obstruction. * Urinary bladder is normal. No extrinsic mass compression or filling defect noted. There is minimal postvoid residual. IMPRESSION: Obstructive changes right kidney as noted. DICTATED BY: ELENA STRONG MD DATE: 07/29/24 1000 ELECTRONICALLY SIGNED BY: ELENA STRONG MD DATE: 07/29/24 1004 [facility] [address] [place], [place] [id number] IMAGING REPORT Signed PATIENT: CHASIDY MCKEON MR#: [id number] : 1990 SEX: M AGE: 34 LOCATION: [facility] ORDER STATUS: ADM IN REPORT#: [id number] SERVICE REASON: intractable abdominal pain, hx renal stones ORDERING PHYSICIAN: CARLOS CHO ASSOCIATE DIRECTOR OF NURSING PROCEDURE: ABD PEL WO - CT ABDOMEN/PELVIS W/O CONTRAST CT ABDOMEN PELVIS WITHOUT CONTRAST Clinical Information: intractable abdominal pain, hx renal stones Comparison: CT Dose Index (CTDI): 28.40 mGy Dose Length Product (DLP): 1536.00 total mGy-cm PROTOCOL: Routine noncontrast helical scanning of the abdomen and pelvis was performed at 5mm collimation. Findings: There is a Right ureteropelvic junction calculus measuring 7 mm causing mild right hydronephrosis. The contralateral kidney is unremarkable. The lung bases are clear. The stomach is unremarkable. It shows no wall thickening. No gross ulceration is seen. It is not overly distended. There are no surrounding inflammatory changes. No wall lesions are identified to suggest cancer. The spleen is unremarkable. It is not enlarged. The pancreas shows normal anatomy. It is not fatty replaced. It shows no lesions. The pancreatic duct is not dilated. The gallbladder is unremarkable. It shows no cholelithiasis. The gallbladder wall is normal in thickness. There is no pericholecystic fluid. The is no acute or chronic inflammation noted. The adrenal glands are unremarkable. There is no enlargement. No lesions are noted. The liver is unremarkable. It shows no focal masses. The appendix is unremarkable. It shows no evidence of inflammation. No appendicolith is seen. The small bowel is unremarkable. There is no evidence of dilatation to suggest obstruction. No evidence of adynamic ileus is seen. There is no small bowel wall thickening to suggest enteritis. The colon is unremarkable. The urinary bladder is unremarkable. There is no wall thickening to suggest tumor or inflammation. There are no intraluminal calculi. There are no diverticula. There is no evidence of chronic bladder outlet obstruction. There is no evidence of urinary bladder distention to suggest urinary retention. The other pelvic structures are unremarkable. The bony and vascular structures are unremarkable for the patient's age. IMPRESSION: Urinary tract calculus causing obstruction. This study was performed using dose reduction techniques to include automated exposure control and/or adjustment of the mA and/or kV according to patient size. DICTATED BY: ELENA STRONG MD DATE: 07/28/24825 ELECTRONICALLY SIGNED BY: ELENA STRONG MD DATE: 07/28/24831 ASSESSMENT: Nephrolithiasis, POA Mild right hydronephrosis Intractable right flank pain secondary to nephrolithiasis Anemia, POA Acute dehydration (elevated creatinine at 1.4, ketonuria) Acute kidney injury, POA, GFR 68 Proteinuria Hematuria Chronic problem list: DM type 2, hypercholesteremia, hypertension, kidney stones Morbid obesity PLAN: We will continue to monitor the patient on medical floor. Nephrolithiasis, POA Mild right hydronephrosis Continue LR at 100 mL an hour. Continue Flomax 0.4 mg p.o. Daily. Continue to Strain all urine. Renal ultrasound unremarkable CT abdomen and pelvis showed right ureteropelvic junction calculus of 7 mm causing mild right hydronephrosis Urology consult appreciated and recommended IVP which showed obstructive changes with calculus in right ureteropelvic junction measuring 9 mm. Patient remains NPO until we hear back the next plan from Urology Intractable right flank pain secondary to nephrolithiasis Pain scale 6/10 Continue Toradol and [place] as needed for pain Anemia, POA Hemoglobin is 13.8 No further interventions to be done Acute kidney injury, POA, GFR 68 Acute dehydration (elevated creatinine at 1.4, ketonuria) BUN 18 and create who went up from 1.3-1.6. Continue IV fluids Avoid nephrotoxic drugs. Diabetes mellitus type 2 Glucometer checks a.c. and HS with insulin regular sliding scale coverage as needed per protocol. Hypoglycemia protocol Hypertension Pressure in the morning was 153/100 likely because of pain. Continue lisinopril 20 mg p.o. b.i.d. IV hydralazine 10 mg p.r.n. if systolic blood pressure above 160 Hypercholesteremia Continue atorvastatin 40 mg p.o. daily. TSH 1.24 On admission P.r.n. medications for: Pain management, nausea, vomiting fever, hypertension, constipation GI and DVT prophylaxis: Pepcid. Discontinue Lovenox and SCDs for DVT prophylax ATTESTATION BY PHYSICIAN I have seen and examined the patient. I reviewed the documentation, medical decision making, and treatment plan as noted by the resident provider above. I agree with the findings and plan of care. Garfield Ramirez MD, KRUPALI P MD July 29, 2024 12:43
[2024-07-29 14:16] LABS: INR 1.04 (0.85-1.15)
[2024-07-29 14:17] LABS: PARTIAL THROMBOPLASTIN TIME 26.8 SEC (26.3-35.5)
--- NOTE | 2024-07-29 15:01 | HMCIMG ---
Exam Type: US RENAL SONOGRAM Clinical Information: RT URINARY OBSTRUCTION Comparison: None Findings: Examination shows normal renal size and echogenicity bilaterally. Preserved cortical thickness and corticomedullary junction region is seen. No hydronephrosis or calculi are seen. No renal masses are seen. There is no evidence of perinephric fluid on either side. No evidence of significant ureteral dilatation is seen. The right kidney measures 13.7 x 4.9 cm. The left kidney measures 13.4 x 5.4 cm. The urinary bladder is normal. No bladder masses, stones, or wall thickening is seen. IMPRESSION: Normal renal anatomy bilaterally.
--- NOTE | 2024-07-29 16:14 | NUR ---
PATIENT BEING TAKEN DOWN FOR PROCEDURE BY June. NO SIGNS AND SYMPTOMS OF DISTRESS NOTED.
[2024-07-29] MEDS ORDERED: LIDOCAINE PF 100MG/5ML (2%) SYRINGE 5ML ONE (16:22)
[2024-07-29] MEDS ORDERED: SUCCINYLCHOLINE CHLORIDE 20 MG/ML 10 ML VIAL ONE (16:23)
[2024-07-29] MEDS ORDERED: MIDAZOLAM HCL 1 MG/ML 2ML VIAL ONE (16:23)
[2024-07-29] MEDS ORDERED: rocuRONium bROMide 10MG/1ML 5ML VL ONE (16:23)
[2024-07-29] MEDS ORDERED: FENTanyl CITRate PF 50 MCG/1 ML 2ML VIAL ONE (16:23)
[2024-07-29] MEDS ORDERED: proPOFol 10 MG/ML 20ML VIAL IV ONE (16:23)
[2024-07-29] MEDS ORDERED: IOHEXOL-350 50ML VIAL IV ONE (16:24)
[2024-07-29] MEDS: acetaMINOPHEN 100 ML ONE (16:39)
[2024-07-29] MEDS: SUGAMMADEX SODIUM 200 MG/2 ML VIAL IV ONE (16:39)
[2024-07-29] MEDS: cefTRIAXone 1G VIAL ONE (16:40)
[2024-07-29] MEDS ORDERED: dexaMETHasone SOD PHOSPHATE 10MG/ML 1ML VIAL ONE (17:07)
[2024-07-29] MEDS ORDERED: ondanSETRON 4MG INJ ONE (17:07)
--- NOTE | 2024-07-29 18:01 | HMCIMG ---
INTRAOPERATIVE FLUOROSCOPIC GUIDANCE UP TO 1 HOUR. IMPRESSION: Intraoperative fluoroscopic guidance was provided for cystoscopy, cannulization right ureter, right retrograde pyelogram, right ureteral stent placement, which was performed by Dr. Malik. Total fluoroscopy time was 3.5 minutes, and administered dose, 95.3 mGy. A total of 13 spot images obtained. Please refer to the procedure note for further details.
--- NOTE | 2024-07-29 18:38 | NUR ---
PATIENT BACK TO THE UNIT FROM PROCEDURE NO SIGNS AND SYMPTOMS OF DISTRESS NOTED.
--- NOTE | 2024-07-29 18:53 | OP ---
DATE OF PROCEDURE: 07/29/2024 PREOPERATIVE DIAGNOSIS: Right obstructed kidney secondary to 7 mm proximal ureteric stone. PROCEDURES PERFORMED: * Cystoscopy. * Retrograde pyelography on the right. * Retrograde placement of double-J stent 6-Gibraltarian 26 cm double-J stent. POSTOPERATIVE DIAGNOSIS: Right obstructed kidney secondary to 7 mm proximal ureteric stone. ANESTHESIA: General anesthesia. COMPLICATIONS: None. DRAINS: A 6-Gibraltarian 26 cm double-J stent on the right hand side and a 14-Gibraltarian Hernandez catheter. INDICATIONS FOR PROCEDURE: This is a 34-year-old male with right renal colic, 5 days' duration, failure to progress. IVP shows high-grade obstruction. He elected to proceed with a double-J stent placement on the right hand side. All risks, benefits, alternatives and potential complications of this procedure were reviewed with the patient. Nephrostomy tube declined by Interventional Radiology because of the patient's body mass. The patient is aware that in a staged fashion once his kidney is drained, extracorporeal shockwave intervention for definite stone therapy would be necessary. Despite his serious admonitions, he wished to proceed. He did request to proceed and did provide fully informed consent. FINDINGS: Anterior urethra free of any lesions, strictures, or foreign bodies. External urethral sphincter is intact. Posterior urethra is significant for trilobar enlarged prostate, very mild. Bladder neck is opened. Bladder mucosa is smooth. There are no tumors, no stones or diverticular identified. Ureteric orifices are in normal position with clear efflux on the left, none on the right. Retrograde pyelography shows an obstructing proximal ureteric stone with proximal hydroureter and hydronephrosis. DESCRIPTION OF PROCEDURE: The patient was duly identified, informed consent was confirmed. Timeout was taken. He was then brought to the operating room, placed on the table. After adequate hemodynamic monitoring had been established by Anesthesiology, the patient underwent smooth induction of general anesthesia by Anesthesiology. Next, he was placed in dorsal lithotomy position and genitalia were now thoroughly prepped and draped in the usual sterile fashion. A rigid cystourethroscopy was then performed with a 30-degree and 70-degree lens with findings as above. Cone tipped catheter was utilized to intubate the right ureteric orifice. Retrograde pyelography shows obstruction of the ureter proximal right side. Cone tipped catheter was exchanged for open-ended ureteric catheter through which was threaded a 0.[address] the way up on the right side. The ureteric catheter was advanced to the renal pelvis. The wire was removed. [place] drip was obtained. Retrograde pyelography revealed no extravasation and adequate position of the ureteric catheter. Wire was introduced up the ureteric catheter. Ureteric catheter was exchanged out. The wire was backloaded on the cystoscope and over the wire through the cystoscope was advanced, a 6-Gibraltarian 26 cm double-J up to the renal pelvis on the right side. The wire was removed with a satisfactory curl in the renal pelvis above and bladder below. The bladder was now left half full. Instruments were now carefully removed under direct vision and a 14-Gibraltarian Hernandez catheter was placed in the bladder with efflux of clear urine. KUB confirmed good position of the stent. The patient was now awakened from anesthesia, now transferred from the operating room to recovery room in stable and hemodynamically satisfactory condition having experienced no complications. He will have a KUB tomorrow in the a.m., Hernandez catheter removed early tomorrow morning and following discharge, follow up with me in my office in 2-3 days' time to schedule definite therapy of his proximal ureteric stone on the right. No complications. TID: [id number] RECEIPT: [id number]
[2024-07-30] VITALS (8 sets, daily range): BP systolic 119–161; BP diastolic 65–93; PULSE 57–79; RESP 19–22; TEMP 98.1–98.9; O2SAT 98
[2024-07-30 06:31] LABS: BASOPHILS # (AUTO) 0.01 K/uL (0.00-0.20); BASOPHILS % (AUTO) 0.1 % (0.0-5.0); EOSINOPHILS # (AUTO) 0.05 K/uL (0.00-0.70); EOSINOPHILS % (AUTO) 0.6 % (0.0-8.0); HEMATOCRIT 40.5 % (42-54); IMMATURE GRANULOCYTE ABSOLUTE 0.05 K/uL (0-1); LYMPHOCYTES # (AUTO) 1.3 K/uL (1.0-4.8); LYMPHOCYTES % (AUTO) 15.4 % (21.0-51.0); MEAN CORPUSCULAR HEMOGLOBIN 30.7 pg (27.0-33.0); MEAN CORPUSCULAR HGB CONC 34.3 g/dL (32.0-36.0); MEAN CORPUSCULAR VOLUME 89.4 fL (79-99); MONOCYTES # (AUTO) 0.3 K/uL (0.1-1.0); MONOCYTES % (AUTO) 3.5 % (3.0-13.0); NEUTROPHILS # (AUTO) 6.6 K/uL (1.8-7.7); NEUTROPHILS % (AUTO) 79.8 % (40.0-77.0); PLATELET COUNT (AUTO) 250 K/uL (130-400); RED BLOOD CELL COUNT(AUTO) 4.53 MIL/uL (4.50-6.20); RED CELL DISTRIBUTION WIDTH 13.2 % (11.0-15.5); WHITE BLOOD COUNT (AUTO) 8.3 K/uL (4.8-10.8)
[2024-07-30 06:45] LABS: CREATININE 1.2 mg/dL (0.5-1.3)
--- NOTE | 2024-07-30 11:23 | HMCIMG ---
Exam Type: abdomen supine tomograms Tomogram planes done at 12-18 cm. Clinical Information: post op right ureteric stent placement Comparison: None. Findings: Right renal lower pole calculus seen measuring 6 mm. Right double-J catheter in place. The limited visualization of the rest of the abdomen structures is unremarkable. IMPRESSION: Right renal lower pole calculus seen measuring 6 mm. Right double-J catheter in place.
--- NOTE | 2024-07-30 11:39 | HMCIMG ---
Exam Type: ABD 1VW Clinical Information: POST OP RIGHT URETERIC STENT PLACEMENT Comparison: None Findings: Right renal lower pole calculus seen measuring 6 mm. Right double-J catheter in place. The limited visualization of the rest of the abdomen structures is unremarkable. IMPRESSION: Right renal lower pole calculus seen measuring 6 mm. Right double-J catheter in place.
--- NOTE | 2024-07-30 12:33 | PN ---
[facility] PROGRESS NOTE Date of Service: July 30, 2024 Time of Service: 12:30 SUBJECTIVE: Mr. Mckeon is a morbidly obese 34-year-old male with with history of morbid obesity, DM type 2, hypercholesteremia, hypertension, kidney stone presented to ED for evaluation of right flank pain. The patient was seen at an emergency department in [facility] 2 days back where he was diagnosed with a 7 mm stone in the right ureter. He was discharged home on pain medication that has not helped him over the last 24 hours. He reports today with increased pain which prompted the ED admission. The patient denied any other pain, problem or concern. Renal sonogram: No sonographic evidence for hydronephrosis or any evidence to plata ggest pyelonephritis. In ED the patient was administered NS1 L bolus, Dilaudid 1 mg IV, morphine 2 mg IV, and Toradol 15 mg IV. Patient was admitted with the diagnosis intractable abdominal pain and right ureteral stone. 07/28/24 patient was seen and examined today morning. His family is at the bedside. He does not have the flank pain at the moment. He received IV Toradol for the pain. He denies hematuria. CT abdomen and pelvis showed right ureteropelvic junction calculus measuring 7:00 a.m. causing mild right hydronephrosis. Vitals are stable. Kidney functions are improving. Creatinine went down from 1.4 to 1.3. Urology consult requested and pending evaluation. 07/29/24 patient was seen and examined. He is complaining of right flank pain and pain scale is 6/10. He denies nausea, vomiting, hematuria or fever. Urology consult with Dr. Bay appreciated and ordered IVP which showed obstructive changes and calculus in right ureteropelvic junction measuring 9 mm. Pending on further recommendations from Urology. Patient remains NPO until we are hear back the plan from Urology. 07/30/24 the patient was seen and examined. He is complaining of sharp right flank pain when he urinates. The pain seemed to be resolving after urinating. He also had hematuria after retrograde stent placement. Blood pressure was 161/87 today morning. Urine culture showed no growth. Kidney functions back to normal with BUN12 and creatinine 1.2. Patient had a the trocar placement of stent yesterday. KUB tomography was ordered by Dr. Bay today morning, which showed right renal lower pole calculus measuring 6 mm. Right double-J catheter in place. Pending further plan from Urology. REVIEW OF SYSTEMS CONSTITUTIONAL: Denies fevers, chills, or night sweats. No unintentional weight loss reported. NEUROLOGICAL: Denies headache, amaurosis fugax, motor weakness, sensory deficit, vertigo/spinning sensation, gait abnormalities, or tremors. ENT: No hearing loss, otalgia, otorrhea, rhinitis, rhinorrhea, hoarseness, or sore throat. CARDIOVASCULAR: Denies any exertional angina, dyspnea on exertion, orthopnea, paroxysmal nocturnal dyspnea, palpitations, life-threatening arrhythmias, c laudication. Complains of chest discomfort PULMONARY: Denies any shortness of breath, cough, phlegm/sputum, hemoptysis, pleuritic chest pain. SLEEP: Denies morning headaches, daytime somnolence or napping. Denies difficulty falling asleep, staying asleep, waking from sleep. Denies knowledge of snoring. GASTROINTESTINAL: Denies any type of dysphagia to either liquids or solids. Denies nausea, vomiting, pyrosis, early satiety, abdominal pain, diarrhea, constipation, or changes in stool consistency or caliber. Denies coffee-ground emesis, hematemesis, hematochezia, or melanotic stools. GENITOURINARY: Denies frequency, urgency, nocturia, hematuria or incontinence (Storage/Irritative symptoms.) Low urinary stream, straining to void, urinary intermittency or hesitancy, splitting of the voiding stream, terminal dribbling. ENDOCRINOLOGIC: Denies polyuria, polydipsia, polyphagia or heat/cold intolerances. HEMATOLOGIC: Denies thrombophilia/previous clots, or coagulopathy/bleeding disorders. ONCOLOGIC: Denies personal history of malignancy. DERMATOLOGIC: Denies rashes or pruritus. PSYCHIATRIC: Denies any suicidal or homicidal ideation. Denies hallucinations. PHYSICAL EXAM GENERAL APPEARANCE: The patient is awake, alert, and oriented, in no acute cardiopulmonary distress. NEUROLOGICAL: Cranial nerves II-XII grossly intact. Motor is 5/5 in bilateral upper and lower extremities proximal to distal. No sensory deficits. HEENT: Face is symmetric. Pupils are equal and reactive. Extraocular movements are intact. NECK: Supple. No JVD. No thyromegaly. No submental, submandibular, pre-/post auricular, occipital or supraclavicular lymphadenopathy. CHEST: Normal chest expansion. No Telemetry. LUNGS: Absence of any rales, rhonchi or any wheezing. CARDIOVASCULAR: Regular. S1 and S2 normal. No appreciable rubs, murmurs or gallops. ABDOMEN: Morbid obese. Soft, nontender, and nondistended. There is no rebound, voluntary guarding, or rigidity. : Deferred. No Hernandez. EXTREMITIES: Non-edematous and not cyanotic. No clubbing. Good capillary refill. SKIN: No skin breakdown. Vital Signs (last 8hr) Date Time Temp Pulse Resp B/P (MAP) Pulse Ox O2 Delivery O2 Flow Rate FiO2 07/30/24 11:57 98.4 79 20 155/89 98 Room Air 21 07/30/24 08:20 98.6 75 20 161/87 98 Room Air 21 LABS: Laboratory: Test 07/30/24 11:28 07/30/24 05:51 07/29/24 13:33 Range/Units Whole Blood Glucose 100 70-110 MG/DL Bedside Glucose Comment Notified Nurse White Blood Count 8.3 4.8-10.8 K/uL Red Blood Count 4.53 4.50-6.20 MIL/uL Hemoglobin 13.9 L 14.0-18.0 g/dL Hematocrit 40.5 L 42-54 % Mean Corpuscular Volume 89.4 79-99 fL Mean Corpuscular Hemoglobin 30.7 27.0-33.0 pg Mean Corpuscular Hemoglobin Concent 34.3 32.0-36.0 g/dL Red Cell Distribution Width 13.2 11.0-15.5 % Platelet Count 250 # 130-400 K/uL Mean Platelet Volume 10.7 H 7.5-10.5 fL Immature Granulocyte % (Auto) 0.6 0-1 % Neutrophils (%) (Auto) 79.8 H 40.0-77.0 % Lymphocytes (%) (Auto) 15.4 L 21.0-51.0 % Monocytes (%) (Auto) 3.5 3.0-13.0 % Eosinophils (%) (Auto) 0.6 0.0-8.0 % Basophils (%) (Auto) 0.1 0.0-5.0 % Neutrophils # (Auto) 6.6 1.8-7.7 K/uL Lymphocytes # (Auto) 1.3 1.0-4.8 K/uL Monocytes # (Auto) 0.3 0.1-1.0 K/uL Eosinophils # (Auto) 0.05 0.00-0.70 K/uL Basophils # (Auto) 0.01 0.00-0.20 K/uL Absolute Immature Granulocyte (auto 0.05 0-1 K/uL Nucleated Red Blood Cells 0.0 0.0-0.19 % Sodium Level 137 136-145 mmol/L Potassium Level 5.0 3.5-5.1 mmol/L Chloride Level 102 101-111 mmol/L Carbon Dioxide Level 29 21-32 mmol/L Blood Urea Nitrogen 12 7-18 mg/dL Creatinine 1.2 0.5-1.3 mg/dL Glomerular Filtration Rate Calc 81 >90 mL/min Random Glucose 137 H 70-105 mg/dL Total Calcium 8.5 8.5-10.1 mg/dL Prothrombin Time 11.0 9.6-11.6 SEC Prothromb Time International Ratio 1.04 0.85-1.15 Activated Partial Thromboplast Time 26.8 26.3-35.5 SEC Current Medications Medications (Trade) Dose Ordered Sig/Melita Route PRN Reason Start Time Stop Time Status Last Admin Dose Admin Acetaminophen (TYLenol 325MG TAB) 650 mg Q6H PRN PO FEVER/MILD PAIN LEVEL 1-3 07/27/24 21:30 08/26/24 21:29 Acetaminophen (TYLenol 650MG SUPPOSITORY) 650 mg Q6H PRN RC FEVER / MILD PAIN 1-3 IF NPO 07/27/24 21:30 08/26/24 21:29 Acetaminophen/ Hydrocodone Bitart (NORco 5/325MG) 1 tab Q6H PRN PO PAIN LEVEL 4 TO 6 07/27/24 21:30 08/01/24 21:29 07/28/24 18:35 1 TAB Acetaminophen/ Hydrocodone Bitart (NORco 5/325MG) 2 tab Q6H PRN PO 710 07/27/24 22:00 08/01/24 21:59 07/29/24 20:51 2 TAB Atorvastatin Calcium (LIPItor 40MG) 40 mg HS PO 07/28/24 21:00 08/27/24 20:59 07/29/24 20:51 40 MG Docusate Sodium (COLace 100MG CAP) 100 mg BID PRN PO c 07/27/24 21:30 08/26/24 21:29 Enoxaparin Sodium (Lovenox) 40 mg DAILY SQ 07/28/24 09:00 07/29/24 12:47 DC 07/28/24 08:27 40 MG Famotidine (Pepcid 20mg Tab) 20 mg BID PO 07/28/24 09:00 08/27/24 08:59 07/30/24 08:44 20 MG Insulin Human Regular (humuLIN R 100 UNIT/ML 3ML) INSULIN SLIDING SCAL... ACHS SQ 07/28/24 07:30 08/27/24 07:29 Ketorolac Tromethamine (toRADol) 30 mg Q6H PRN IM SEVERE PAIN (7-10) 07/28/24 01:00 07/28/24 02:42 DC Ketorolac Tromethamine (toRADol) 30 mg Q6H PRN IV SEVERE PAIN (7-10) 07/28/24 05:00 08/02/24 04:59 07/29/24 13:55 30 MG Ketorolac Tromethamine (toRADol) 30 mg Q6H PRN IV SEVERE PAIN (7-10) 07/28/24 07:00 07/28/24 05:17 DC Labetalol HCl (TRANdate 20MG SYG) 10 mg Q2H PRN IV SBP GREATER THAN 160 07/27/24 21:30 08/26/24 21:29 Lactated Ringer's 1,000 ml @ 100 mls/hr Q10H IV 07/27/24 21:30 08/26/24 21:29 07/30/24 09:35 100 MLS/HR Lactulose (Constulose 20gm/ 30ml Udcup) 20 gm Q6H PRN PO CONSTIPATION 07/27/24 21:30 08/26/24 21:29 07/28/24 18:37 20 GM Lisinopril (Prinivil 20mg) 20 mg BID PO 07/28/24 09:00 08/27/24 08:59 07/30/24 08:44 20 MG Ondansetron HCl (zoFRAN 4MG INJ) 4 mg Q6H PRN IVP NAUSEA/VOMITING 07/27/24 21:30 08/26/24 21:29 07/28/24 23:30 4 MG Tamsulosin HCl (FloMAX) 0.4 mg DAILY PO 07/28/24 09:00 08/27/24 08:59 07/30/24 08:44 0.4 MG Temazepam (restORIL 15 MG CAP) 15 mg HS PRN PO INSOMNIA/SLEEP 07/27/24 21:30 08/26/24 21:29 DIAGNOSTICS / RADIOLOGY: [place] [address] [id number] IMAGING REPORT Signed PATIENT: CHASIDY MCKEON MR#: [id number] : 1990 SEX: M AGE: 34 LOCATION: 4AH ORDER 1622 STATUS: ADM IN REPORT#: [id number] SERVICE 1715 REASON: RT urteral calculus ORDERING PHYSICIAN: ADA BAY MD PROCEDURE: URORETRO - UROGRAPHY RETROGRADE INTRAOPERATIVE FLUOROSCOPIC GUIDANCE UP TO 1 HOUR. IMPRESSION: Intraoperative fluoroscopic guidance was provided for cystoscopy, cannulization right ureter, right retrograde pyelogram, right ureteral stent placement, which was performed by Dr. Bay. Total fluoroscopy time was 3.5 minutes, and administered dose, 95.3 mGy. A total of 13 spot images obtained. Please refer to the procedure note for further details. DICTATED BY: OLIVIA YARBROUGH MD DATE: 07/29/24 2414 ELECTRONICALLY SIGNED BY: OLIVIA YARBROUGH MD DATE: 07/29/24 1808 [place] [address] [id number] IMAGING REPORT Signed PATIENT: CHASIDY MCKEON MR#: [id number] : 1990 SEX: M AGE: 34 LOCATION: 4AH ORDER 2300 STATUS: ADM IN REPORT#: [id number] SERVICE 0600 REASON: POST OP RIGHT URETERIC STENT PLACEMENT ORDERING PHYSICIAN: ADA BAY MD PROCEDURE: ABD 1VW - ABD 1VW Exam Type: ABD 1VW Clinical Information: POST OP RIGHT URETERIC STENT PLACEMENT Comparison: None Findings: Right renal lower pole calculus seen measuring 6 mm. Right double-J catheter in place. The limited visualization of the rest of the abdomen structures is unremarkable. IMPRESSION: Right renal lower pole calculus seen measuring 6 mm. Right double-J catheter in place. DICTATED BY: ELENA STRONG MD DATE: 07/30/24 1137 ELECTRONICALLY SIGNED BY: ELENA STRONG MD DATE: 07/30/24 1139 [facility] [address] [place] [id number] IMAGING REPORT Signed PATIENT: CHASIDY MCKEON MR#: [id number] : 1990 SEX: M AGE: 34 LOCATION: [facility] ORDER 1025 STATUS: ADM IN REPORT#: [id number] SERVICE 1010 REASON: post op right ureteric stent placement ORDERING PHYSICIAN: ADA BAY MD PROCEDURE: TOMOS - TOMOGRAM Exam Type: abdomen supine tomograms Tomogram planes done at 12-18 cm. Clinical Information: post op right ureteric stent placement Comparison: None. Findings: Right renal lower pole calculus seen measuring 6 mm. Right double-J catheter in place. The limited visualization of the rest of the abdomen structures is unremarkable. IMPRESSION: Right renal lower pole calculus seen measuring 6 mm. Right double-J catheter in place. DICTATED BY: ELENA STRONG MD DATE: 07/30/24 1119 ELECTRONICALLY SIGNED BY: ELENA STRONG MD DATE: 07/30/24 1123 ASSESSMENT: Nephrolithiasis, POA Mild right hydronephrosis Intractable right flank pain secondary to nephrolithiasis Anemia, POA Acute dehydration (elevated creatinine at 1.4, ketonuria) Acute kidney injury, POA, GFR 68 Proteinuria Hematuria Chronic problem list: DM type 2, hypercholesteremia, hypertension, kidney stones Morbid obesity PLAN: We will continue to monitor the patient on medical floor. Nephrolithiasis, POA Mild right hydronephrosis Continue LR at 100 mL an hour. Continue Flomax 0.4 mg p.o. Daily. Continue to Strain all urine. Renal ultrasound unremarkable CT abdomen and pelvis showed right ureteropelvic junction calculus of 7 mm causing mild right hydronephrosis Urology consult appreciated and recommended IVP which showed obstructive changes with calculus in right ureteropelvic junction measuring 9 mm. Patient had a retrograde placement of stent yesterday. KUB tomography was ordered which showed right renal lower pole calculus measuring 6 mm. right double-J catheter in place. Waiting on further recommendations from Urology Intractable right flank pain secondary to nephrolithiasis Complaining of sharp right flank pain during urination Continue Toradol and [place] as needed for pain Anemia, POA Hemoglobin is 13.9 No further interventions to be done Acute kidney injury, POA, GFR 68 Acute dehydration (elevated creatinine at 1.4, ketonuria) BUN 12 and create down from 1.6 to 1.2 Continue IV fluids Avoid nephrotoxic drugs. Diabetes mellitus type 2 Glucometer checks a.c. and HS with insulin regular sliding scale coverage as needed per protocol. Hypoglycemia protocol Hypertension Pressure in the morning was 161/87 likely because of pain. Continue lisinopril 20 mg p.o. b.i.d. IV hydralazine 10 mg p.r.n. if systolic blood pressure above 160 Hypercholesteremia Continue atorvastatin 40 mg p.o. daily. TSH 1.24 On admission P.r.n. medications for: Pain management, nausea, vomiting fever, hypertension, constipation GI and DVT prophylaxis: Pepcid. Discontinue Lovenox and SCDs for DVT prophylax ATTESTATION BY PHYSICIAN I have seen and examined the patient. I reviewed the documentation, medical decision making, and treatment plan as noted by the resident provider above. I agree with the findings and plan of care. Garfield Ramirez MD, KRUPALI P MD July 30, 2024 12:33
--- NOTE | 2024-07-30 13:11 | HMCIMG ---
Exam Type: CT ABDOMEN/PELVIS W/O CONTRAST Clinical Information: kidney stone protocol, compare to previous Comparison: None CT Dose Index (CTDI): 10.20 mGy Dose Length Product (DLP): 530.00 total mGy-cm PROTOCOL: Routine noncontrast helical scanning of the abdomen and pelvis was performed at 5mm collimation. Findings: No evidence of nephro or ureterolithiasis is found. No hydronephrosis or ureteral dilatation is seen. Right double-J catheter in place. The lung bases are clear. The stomach is unremarkable. It shows no wall thickening. No gross ulceration is seen. It is not overly distended. There are no surrounding inflammatory changes. No wall lesions are identified to suggest cancer. The spleen is unremarkable. It is not enlarged. The pancreas shows normal anatomy. It is not fatty replaced. It shows no lesions. The pancreatic duct is not dilated. The gallbladder is unremarkable. It shows no cholelithiasis. The gallbladder wall is normal in thickness. There is no pericholecystic fluid. The is no acute or chronic inflammation noted. The adrenal glands are unremarkable. There is no enlargement. No lesions are noted. The liver is unremarkable. It shows no focal masses. The appendix is unremarkable. It shows no evidence of inflammation. No appendicolith is seen. The small bowel is unremarkable. There is no evidence of dilatation to suggest obstruction. No evidence of adynamic ileus is seen. There is no small bowel wall thickening to suggest enteritis. The colon is unremarkable. The urinary bladder is unremarkable. There is no wall thickening to suggest tumor or inflammation. There are no intraluminal calculi. There are no diverticula. There is no evidence of chronic bladder outlet obstruction. There is no evidence of urinary bladder distention to suggest urinary retention. The other pelvic structures are unremarkable. The bony and vascular structures are unremarkable for the patient's age. IMPRESSION: NEGATIVE CT SCAN OF THE ABDOMEN AND PELVIS. NO RENAL STONES. NO ACUTE PATHOLOGY OR INFLAMMATION SEEN. This study was performed using dose reduction techniques to include automated exposure control and/or adjustment of the mA and/or kV according to patient size.
[2024-07-31] VITALS (8 sets, daily range): BP systolic 130–154; BP diastolic 75–97; PULSE 66–75; RESP 17–21; TEMP 97.8–98.6; O2SAT 99
[2024-07-31 05:17] LABS: BASOPHILS # (AUTO) 0.07 K/uL (0.00-0.20); BASOPHILS % (AUTO) 0.7 % (0.0-5.0); EOSINOPHILS # (AUTO) 0.11 K/uL (0.00-0.70); EOSINOPHILS % (AUTO) 1.1 % (0.0-8.0); HEMATOCRIT 39.9 % (42-54); IMMATURE GRANULOCYTE ABSOLUTE 0.04 K/uL (0-1); LYMPHOCYTES # (AUTO) 3.2 K/uL (1.0-4.8); LYMPHOCYTES % (AUTO) 31.7 % (21.0-51.0); MEAN CORPUSCULAR HEMOGLOBIN 30.7 pg (27.0-33.0); MEAN CORPUSCULAR HGB CONC 34.3 g/dL (32.0-36.0); MEAN CORPUSCULAR VOLUME 89.5 fL (79-99); MONOCYTES # (AUTO) 0.7 K/uL (0.1-1.0); MONOCYTES % (AUTO) 7.3 % (3.0-13.0); NEUTROPHILS # (AUTO) 5.9 K/uL (1.8-7.7); NEUTROPHILS % (AUTO) 58.8 % (40.0-77.0); PLATELET COUNT (AUTO) 251 K/uL (130-400); RED BLOOD CELL COUNT(AUTO) 4.46 MIL/uL (4.50-6.20); RED CELL DISTRIBUTION WIDTH 13.4 % (11.0-15.5)
[2024-07-31 05:26] LABS: CREATININE 0.9 mg/dL (0.5-1.3); POTASSIUM 4.2 mmol/L (3.5-5.1)
--- NOTE | 2024-07-31 13:49 | PN ---
[facility] PROGRESS NOTE Date of Service: July 31, 2024 Time of Service: 13:48 SUBJECTIVE: Mr. Hodge is a morbidly obese 34-year-old male with with history of morbid obesity, DM type 2, hypercholesteremia, hypertension, kidney stone presented to ED for evaluation of right flank pain. The patient was seen at an emergency department in [facility] 2 days back where he was diagnosed with a 7 mm stone in the right ureter. He was discharged home on pain medication that has not helped him over the last 24 hours. He reports today with increased pain which prompted the ED admission. The patient denied any other pain, problem or concern. Renal sonogram: No sonographic evidence for hydronephrosis or any evidence to s uggest pyelonephritis. In ED the patient was administered NS1 L bolus, Dilaudid 1 mg IV, morphine 2 mg IV, and Toradol 15 mg IV. Patient was admitted with the diagnosis intractable abdominal pain and right ureteral stone. 07/28/24 patient was seen and examined today morning. His family is at the bedside. He does not have the flank pain at the moment. He received IV Toradol for the pain. He denies hematuria. CT abdomen and pelvis showed right ureteropelvic junction calculus measuring 7:00 a.m. causing mild right hydronephrosis. Vitals are stable. Kidney functions are improving. Creatinine went down from 1.4 to 1.3. Urology consult requested and pending evaluation. 07/29/24 patient was seen and examined. He is complaining of right flank pain and pain scale is 6/10. He denies nausea, vomiting, hematuria or fever. Urology consult with Dr. Malik appreciated and ordered IVP which showed obstructive changes and calculus in right ureteropelvic junction measuring 9 mm. Pending on further recommendations from Urology. Patient remains NPO until we are hear back the plan from Urology. 07/30/24 the patient was seen and examined. He is complaining of sharp right flank pain when he urinates. The pain seemed to be resolving after urinating. He also had hematuria after retrograde stent placement. Blood pressure was 161/87 today morning. Urine culture showed no growth. Kidney functions back to normal with BUN12 and creatinine 1.2. Patient had a the trocar placement of stent yesterday. KUB tomography was ordered by Dr. Malik today morning, which showed right renal lower pole calculus measuring 6 mm. Right double-J catheter in place. Pending further plan from Urology. patient was seen and examined. His only complaint is transient but significant pain when he urinates. He was status post Cystoscopy. * Retrograde pyelography on the right. * Retrograde placement of double-J stent 6-[place] 26 cm double-J stent. REVIEW OF SYSTEMS CONSTITUTIONAL: Denies fevers, chills, or night sweats. No unintentional weight loss reported. NEUROLOGICAL: Denies headache, amaurosis fugax, motor weakness, sensory deficit, vertigo/spinning sensation, gait abnormalities, or tremors. ENT: No hearing loss, otalgia, otorrhea, rhinitis, rhinorrhea, hoarseness, or sore throat. CARDIOVASCULAR: Denies any exertional angina, dyspnea on exertion, orthopnea, paroxysmal nocturnal dyspnea, palpitations, life-threatening arrhythmias, claudication. Complains of chest discomfort PULMONARY: Denies any shortness of breath, cough, phlegm/sputum, hemoptysis, pleuritic chest pain. SLEEP: Denies morning headaches, daytime somnolence or napping. Denies difficulty falling asleep, staying asleep, waking from sleep. Denies knowledge of snoring. GASTROINTESTINAL: Denies any type of dysphagia to either liquids or solids. Denies nausea, vomiting, pyrosis, early satiety, abdominal pain, diarrhea, constipation, or changes in stool consistency or caliber. Denies coffee-ground emesis, hematemesis, hematochezia, or melanotic stools. GENITOURINARY: Denies frequency, urgency, nocturia, hematuria or incontinence (Storage/Irritative symptoms.) Low urinary stream, straining to void, urinary intermittency or hesitancy, splitting of the voiding stream, terminal dribbling. ENDOCRINOLOGIC: Denies polyuria, polydipsia, polyphagia or heat/cold intolerances. HEMATOLOGIC: Denies thrombophilia/previous clots, or coagulopathy/bleeding disorders. ONCOLOGIC: Denies personal history of malignancy. DERMATOLOGIC: Denies rashes or pruritus. PSYCHIATRIC: Denies any suicidal or homicidal ideation. Denies hallucinations. PHYSICAL EXAM GENERAL APPEARANCE: The patient is awake, alert, and oriented, in no acute cardiopulmonary distress. NEUROLOGICAL: Cranial nerves II-XII grossly intact. Motor is 5/5 in bilateral upper and lower extremities proximal to distal. No sensory deficits. HEENT: Face is symmetric. Pupils are equal and reactive. Extraocular movements are intact. NECK: Supple. No JVD. No thyromegaly. No submental, submandibular, pre- /postauricular, occipital or supraclavicular lymphadenopathy. CHEST: Normal chest expansion. No Telemetry. LUNGS: Absence of any rales, rhonchi or any wheezing. CARDIOVASCULAR: Regular. S1 and S2 normal. No appreciable rubs, murmurs or gallops. ABDOMEN: Morbid obese. Soft, nontender, and nondistended. There is no rebound, voluntary guarding, or rigidity. : Deferred. No Hernandez. EXTREMITIES: Non-edematous and not cyanotic. No clubbing. Good capillary refill. SKIN: No skin breakdown. Vital Signs (last 8hr) Date Time Temp Pulse Resp B/P (MAP) Pulse Ox O2 Delivery O2 Flow Rate FiO2 07/31/24 11:58 98.1 75 20 144/88 99 Room Air 21 07/31/24 07:53 98.2 72 20 154/97 99 Room Air 21 LABS: Laboratory: Test 07/31/24 11:53 07/31/24 04:23 Range/Units Whole Blood Glucose 84 70-110 MG/DL Bedside Glucose Comment Notified Nurse White Blood Count 10.0 4.8-10.8 K/uL Red Blood Count 4.46 L 4.50-6.20 MIL/uL Hemoglobin 13.7 L 14.0-18.0 g/dL Hematocrit 39.9 L 42-54 % Mean Corpuscular Volume 89.5 79-99 fL Mean Corpuscular Hemoglobin 30.7 27.0-33.0 pg Mean Corpuscular Hemoglobin Concent 34.3 32.0-36.0 g/dL Red Cell Distribution Width 13.4 11.0-15.5 % Platelet Count 251 130-400 K/uL Mean Platelet Volume 10.6 H 7.5-10.5 fL Immature Granulocyte % (Auto) 0.4 0-1 % Neutrophils (%) (Auto) 58.8 40.0-77.0 % Lymphocytes (%) (Auto) 31.7 21.0-51.0 % Monocytes (%) (Auto) 7.3 3.0-13.0 % Eosinophils (%) (Auto) 1.1 0.0-8.0 % Basophils (%) (Auto) 0.7 0.0-5.0 % Neutrophils # (Auto) 5.9 1.8-7.7 K/uL Lymphocytes # (Auto) 3.2 1.0-4.8 K/uL Monocytes # (Auto) 0.7 0.1-1.0 K/uL Eosinophils # (Auto) 0.11 0.00-0.70 K/uL Basophils # (Auto) 0.07 0.00-0.20 K/uL Absolute Immature Granulocyte (auto 0.04 0-1 K/uL Nucleated Red Blood Cells 0.0 0.0-0.19 % Sodium Level 140 136-145 mmol/L Potassium Level 4.2 3.5-5.1 mmol/L Chloride Level 103 101-111 mmol/L Carbon Dioxide Level 31 21-32 mmol/L Blood Urea Nitrogen 13 7-18 mg/dL Creatinine 0.9 0.5-1.3 mg/dL Glomerular Filtration Rate Calc 115 >90 mL/min Random Glucose 101 70-105 mg/dL Total Calcium 8.4 L 8.5-10.1 mg/dL Current Medications Medications (Trade) Dose Ordered Sig/Melita Route PRN Reason Start Time Stop Time Status Last Admin Dose Admin Acetaminophen (TYLenol 325MG TAB) 650 mg Q6H PRN PO FEVER/MILD PAIN LEVEL 1-3 07/27/24 21:30 08/26/24 21:29 Acetaminophen (TYLenol 650MG SUPPOSITORY) 650 mg Q6H PRN RC FEVER / MILD PAIN 1-3 IF NPO 07/27/24 21:30 08/26/24 21:29 Acetaminophen/ Hydrocodone Bitart (NORco 5/325MG) 1 tab Q6H PRN PO PAIN LEVEL 4 TO 6 07/27/24 21:30 08/01/24 21:29 07/28/24 18:35 1 TAB Acetaminophen/ Hydrocodone Bitart (NORco 5/325MG) 2 tab Q6H PRN PO 710 07/27/24 22:00 08/01/24 21:59 07/29/24 20:51 2 TAB Atorvastatin Calcium (LIPItor 40MG) 40 mg HS PO 07/28/24 21:00 08/27/24 20:59 07/30/24 20:04 40 MG Docusate Sodium (COLace 100MG CAP) 100 mg BID PRN PO c 07/27/24 21:30 08/26/24 21:29 Enoxaparin Sodium (Lovenox) 40 mg DAILY SQ 07/28/24 09:00 07/29/24 12:47 DC 07/28/24 08:27 40 MG Famotidine (Pepcid 20mg Tab) 20 mg BID PO 07/28/24 09:00 08/27/24 08:59 07/31/24 09:39 20 MG Insulin Human Regular (humuLIN R 100 UNIT/ML 3ML) INSULIN SLIDING SCAL... ACHS SQ 07/28/24 07:30 08/27/24 07:29 Ketorolac Tromethamine (toRADol) 30 mg Q6H PRN IM SEVERE PAIN (7-10) 07/28/24 01:00 07/28/24 02:42 DC Ketorolac Tromethamine (toRADol) 30 mg Q6H PRN IV SEVERE PAIN (7-10) 07/28/24 05:00 08/02/24 04:59 07/29/24 13:55 30 MG Ketorolac Tromethamine (toRADol) 30 mg Q6H PRN IV SEVERE PAIN (7-10) 07/28/24 07:00 07/28/24 05:17 DC Labetalol HCl (TRANdate 20MG SYG) 10 mg Q2H PRN IV SBP GREATER THAN 160 07/27/24 21:30 08/26/24 21:29 Lactated Ringer's 1,000 ml @ 100 mls/hr Q10H IV 07/27/24 21:30 08/26/24 21:29 07/31/24 04:31 100 MLS/HR Lactulose (Constulose 20gm/ 30ml Udcup) 20 gm Q6H PRN PO CONSTIPATION 07/27/24 21:30 08/26/24 21:29 07/28/24 18:37 20 GM Lisinopril (Prinivil 20mg) 20 mg BID PO 07/28/24 09:00 08/27/24 08:59 07/31/24 09:39 20 MG Ondansetron HCl (zoFRAN 4MG INJ) 4 mg Q6H PRN IVP NAUSEA/VOMITING 07/27/24:30 08/26/24 21:29 07/28/24 23:30 4 MG Tamsulosin HCl (FloMAX) 0.4 mg DAILY PO 07/28/24 09:00 08/27/24 08:59 07/31/24 09:39 0.4 MG Temazepam (restORIL 15 MG CAP) 15 mg HS PRN PO INSOMNIA/SLEEP 07/27/24 21:30 08/26/24 21:29 DIAGNOSTICS / RADIOLOGY: [ ] ASSESSMENT: Nephrolithiasis, POA Mild right hydronephrosis Intractable right flank pain secondary to nephrolithiasis Anemia, POA Acute dehydration (elevated creatinine at 1.4, ketonuria) Acute kidney injury, POA, GFR 68 Proteinuria Hematuria Chronic problem list: DM type 2, hypercholesteremia, hypertension, kidney stones Morbid obesity PLAN: We will continue to monitor the patient on medical floor. Nephrolithiasis, POA Mild right hydronephrosis Continue LR at 100 mL an hour. Continue Flomax 0.4 mg p.o. Daily. Continue to Strain all urine. Renal ultrasound unremarkable CT abdomen and pelvis showed right ureteropelvic junction calculus of 7 mm causing mild right hydronephrosis Urology consult appreciated and recommended IVP which showed obstructive changes with calculus in right ureteropelvic junction measuring 9 mm. Patient had a retrograde placement of stent yesterday. KUB tomography was ordered which showed right renal lower pole calculus measuring 6 mm. right double-J catheter in place. Waiting on further recommendations from Urology Intractable right flank pain secondary to nephrolithiasis Complaining of sharp right flank pain during urination Continue Toradol and [place] as needed for pain Anemia, POA Hemoglobin is 13.9 No further interventions to be done Acute kidney injury, POA, GFR 68 Acute dehydration (elevated creatinine at 1.4, ketonuria) BUN 12 and create down from 1.6 to 1.2 Continue IV fluids Avoid nephrotoxic drugs. Diabetes mellitus type 2 Glucometer checks a.c. and HS with insulin regular sliding scale coverage as needed per protocol. Hypoglycemia protocol Hypertension Pressure in the morning was 161/87 likely because of pain. Continue lisinopril 20 mg p.o. b.i.d. IV hydralazine 10 mg p.r.n. if systolic blood pressure above 160 Hypercholesteremia Continue atorvastatin 40 mg p.o. daily. TSH 1.24 On admission P.r.n. medications for: Pain management, nausea, vomiting fever, hypertension, constipation GI and DVT prophylaxis: Pepcid. Discontinue Lovenox and SCDs for DVT prophylax LUÍS SINGH MD July 31, 2024 13:49
[2024-08-01] VITALS (7 sets, daily range): BP systolic 138–153; BP diastolic 67–95; PULSE 61–82; RESP 17–20; TEMP 97.6–98.3; O2SAT 97–99
--- NOTE | 2024-08-01 15:19 | PN ---
[facility] PROGRESS NOTE Date of Service: August 01, 2024 Time of Service: 15:18 SUBJECTIVE: Mr. Hodge is a morbidly obese 34-year-old male with with history of morbid obesity, DM type 2, hypercholesteremia, hypertension, kidney stone presented to ED for evaluation of right flank pain. The patient was seen at an emergency department in [facility] 2 days back where he was diagnosed with a 7 mm stone in the right ureter. He was discharged home on pain medication that has not helped him over the last 24 hours. He reports today with increased pain which prompted the ED admission. The patient denied any other pain, problem or concern. Renal sonogram: No sonographic evidence for hydronephrosis or any evidence to s uggest pyelonephritis. In ED the patient was administered NS1 L bolus, Dilaudid 1 mg IV, morphine 2 mg IV, and Toradol 15 mg IV. Patient was admitted with the diagnosis intractable abdominal pain and right ureteral stone. 07/28/24 patient was seen and examined today morning. His family is at the bedside. He does not have the flank pain at the moment. He received IV Toradol for the pain. He denies hematuria. CT abdomen and pelvis showed right ureteropelvic junction calculus measuring 7:00 a.m. causing mild right hydronephrosis. Vitals are stable. Kidney functions are improving. Creatinine went down from 1.4 to 1.3. Urology consult requested and pending evaluation. 07/29/24 patient was seen and examined. He is complaining of right flank pain and pain scale is 6/10. He denies nausea, vomiting, hematuria or fever. Urology consult with Dr. Malik appreciated and ordered IVP which showed obstructive changes and calculus in right ureteropelvic junction measuring 9 mm. Pending on further recommendations from Urology. Patient remains NPO until we are hear back the plan from Urology. 07/30/24 the patient was seen and examined. He is complaining of sharp right flank pain when he urinates. The pain seemed to be resolving after urinating. He also had hematuria after retrograde stent placement. Blood pressure was 161/87 today morning. Urine culture showed no growth. Kidney functions back to normal with BUN12 and creatinine 1.2. Patient had a the trocar placement of stent yesterday. KUB tomography was ordered by Dr. Malik today morning, which showed right renal lower pole calculus measuring 6 mm. Right double-J catheter in place. Pending further plan from Urology. patient was seen and examined. His only complaint is transient but significant pain when he urinates. He is status post Cystoscopy. * Retrograde pyelography on the right. * Retrograde placement of double-J stent 6-[place] 26 cm double-J stent. 08/01 patient was seen and examined case discussed with the RN. He continues to have pain while urinating otherwise doing okay. He wants to talk with the urologist about his follow up plan REVIEW OF SYSTEMS CONSTITUTIONAL: Denies fevers, chills, or night sweats. No unintentional weight loss reported. NEUROLOGICAL: Denies headache, amaurosis fugax, motor weakness, sensory deficit, vertigo/spinning sensation, gait abnormalities, or tremors. ENT: No hearing loss, otalgia, otorrhea, rhinitis, rhinorrhea, hoarseness, or sore throat. CARDIOVASCULAR: Denies any exertional angina, dyspnea on exertion, orthopnea, paroxysmal nocturnal dyspnea, palpitations, life-threatening arrhythmias, claudication. Complains of chest discomfort PULMONARY: Denies any shortness of breath, cough, phlegm/sputum, hemoptysis, pleuritic chest pain. SLEEP: Denies morning headaches, daytime somnolence or napping. Denies difficulty falling asleep, staying asleep, waking from sleep. Denies knowledge of snoring. GASTROINTESTINAL: Denies any type of dysphagia to either liquids or solids. Denies nausea, vomiting, pyrosis, early satiety, abdominal pain, diarrhea, constipation, or changes in stool consistency or caliber. Denies coffee-ground emesis, hematemesis, hematochezia, or melanotic stools. GENITOURINARY: Denies frequency, urgency, nocturia, hematuria or incontinence (Storage/Irritative symptoms.) Low urinary stream, straining to void, urinary intermittency or hesitancy, splitting of the voiding stream, terminal dribbling. ENDOCRINOLOGIC: Denies polyuria, polydipsia, polyphagia or heat/cold intolerances. HEMATOLOGIC: Denies thrombophilia/previous clots, or coagulopathy/bleeding disorders. ONCOLOGIC: Denies personal history of malignancy. DERMATOLOGIC: Denies rashes or pruritus. PSYCHIATRIC: Denies any suicidal or homicidal ideation. Denies hallucinations. PHYSICAL EXAM GENERAL APPEARANCE: The patient is awake, alert, and oriented, in no acute cardiopulmonary distress. NEUROLOGICAL: Cranial nerves II-XII grossly intact. Motor is 5/5 in bilateral upper and lower extremities proximal to distal. No sensory deficits. HEENT: Face is symmetric. Pupils are equal and reactive. Extraocular movements are intact. NECK: Supple. No JVD. No thyromegaly. No submental, submandibular, pre- /postauricular, occipital or supraclavicular lymphadenopathy. CHEST: Normal chest expansion. No Telemetry. LUNGS: Absence of any rales, rhonchi or any wheezing. CARDIOVASCULAR: Regular. S1 and S2 normal. No appreciable rubs, murmurs or gallops. ABDOMEN: Morbid obese. Soft, nontender, and nondistended. There is no rebound, voluntary guarding, or rigidity. : Deferred. No Hernandez. EXTREMITIES: Non-edematous and not cyanotic. No clubbing. Good capillary refill. SKIN: No skin breakdown. Vital Signs (last 8hr) Date Time Temp Pulse Resp B/P (MAP) Pulse Ox O2 Delivery O2 Flow Rate FiO2 08/01/24 12:00 98.2 82 17 151/89 98 Room Air 08/01/24 08:00 98.1 74 18 146/92 98 Room Air 08/01/24 08:00 97 Room Air* 0 21 LABS: Laboratory: Test 08/01/24 11:13 07/31/24 15:53 07/31/24 04:23 Range/Units Whole Blood Glucose 77 70-110 MG/DL Bedside Glucose Comment Notified Nurse White Blood Count 10.0 4.8-10.8 K/uL Red Blood Count 4.46 L 4.50-6.20 MIL/uL Hemoglobin 13.7 L 14.0-18.0 g/dL Hematocrit 39.9 L 42-54 % Mean Corpuscular Volume 89.5 79-99 fL Mean Corpuscular Hemoglobin 30.7 27.0-33.0 pg Mean Corpuscular Hemoglobin Concent 34.3 32.0-36.0 g/dL Red Cell Distribution Width 13.4 11.0-15.5 % Platelet Count 251 130-400 K/uL Mean Platelet Volume 10.6 H 7.5-10.5 fL Immature Granulocyte % (Auto) 0.4 0-1 % Neutrophils (%) (Auto) 58.8 40.0-77.0 % Lymphocytes (%) (Auto) 31.7 21.0-51.0 % Monocytes (%) (Auto) 7.3 3.0-13.0 % Eosinophils (%) (Auto) 1.1 0.0-8.0 % Basophils (%) (Auto) 0.7 0.0-5.0 % Neutrophils # (Auto) 5.9 1.8-7.7 K/uL Lymphocytes # (Auto) 3.2 1.0-4.8 K/uL Monocytes # (Auto) 0.7 0.1-1.0 K/uL Eosinophils # (Auto) 0.11 0.00-0.70 K/uL Basophils # (Auto) 0.07 0.00-0.20 K/uL Absolute Immature Granulocyte (auto 0.04 0-1 K/uL Nucleated Red Blood Cells 0.0 0.0-0.19 % Sodium Level 140 136-145 mmol/L Potassium Level 4.2 3.5-5.1 mmol/L Chloride Level 103 101-111 mmol/L Carbon Dioxide Level 31 21-32 mmol/L Blood Urea Nitrogen 13 7-18 mg/dL Creatinine 0.9 0.5-1.3 mg/dL Glomerular Filtration Rate Calc 115 >90 mL/min Random Glucose 101 70-105 mg/dL Total Calcium 8.4 L 8.5-10.1 mg/dL Current Medications Medications (Trade) Dose Ordered Sig/Melita Route PRN Reason Start Time Stop Time Status Last Admin Dose Admin Acetaminophen (TYLenol 325MG TAB) 650 mg Q6H PRN PO FEVER/MILD PAIN LEVEL 1-3 07/27/24 21:30 08/26/24 21:29 Acetaminophen (TYLenol 650MG SUPPOSITORY) 650 mg Q6H PRN RC FEVER / MILD PAIN 1-3 IF NPO 07/27/24 21:30 08/26/24 21:29 Acetaminophen/ Hydrocodone Bitart (NORco 5/325MG) 1 tab Q6H PRN PO PAIN LEVEL 4 TO 6 07/27/24 21:30 08/01/24 21:29 07/28/24 18:35 1 TAB Acetaminophen/ Hydrocodone Bitart (NORco 5/325MG) 2 tab Q6H PRN PO 710 07/27/24 22:00 08/01/24 21:59 07/29/24 20:51 2 TAB Atorvastatin Calcium (LIPItor 40MG) 40 mg HS PO 07/28/24 21:00 08/27/24 20:59 07/31/24 20:49 40 MG Docusate Sodium (COLace 100MG CAP) 100 mg BID PRN PO c 07/27/24 21:30 08/26/24 21:29 Enoxaparin Sodium (Lovenox) 40 mg DAILY SQ 07/28/24 09:00 07/29/24 12:47 DC 07/28/24 08:27 40 MG Famotidine (Pepcid 20mg Tab) 20 mg BID PO 07/28/24 09:00 08/27/24 08:59 08/01/24 09:40 20 MG Insulin Human Regular (humuLIN R 100 UNIT/ML 3ML) INSULIN SLIDING SCAL... ACHS SQ 07/28/24 07:30 08/27/24 07:29 Ketorolac Tromethamine (toRADol) 30 mg Q6H PRN IM SEVERE PAIN (7-10) 07/28/24 01:00 07/28/24 02:42 DC Ketorolac Tromethamine (toRADol) 30 mg Q6H PRN IV SEVERE PAIN (7-10) 07/28/24 05:00 08/02/24 04:59 07/29/24 13:55 30 MG Ketorolac Tromethamine (toRADol) 30 mg Q6H PRN IV SEVERE PAIN (7-10) 07/28/24 07:00 07/28/24 05:17 DC Labetalol HCl (TRANdate 20MG SYG) 10 mg Q2H PRN IV SBP GREATER THAN 160 07/27/24 21:30 08/26/24 21:29 Lactated Ringer's 1,000 ml @ 100 mls/hr Q10H IV 07/27/24 21:30 08/26/24 21:29 07/31/24 15:47 100 MLS/HR Lactulose (Constulose 20gm/ 30ml Udcup) 20 gm Q6H PRN PO CONSTIPATION 07/27/24 21:30 08/26/24 21:29 07/28/24 18:37 20 GM Lisinopril (Prinivil 20mg) 20 mg BID PO 07/28/24 09:00 08/27/24 08:59 08/01/24 09:40 20 MG Ondansetron HCl (zoFRAN 4MG INJ) 4 mg Q6H PRN IVP NAUSEA/VOMITING 07/27/24 21:30 08/26/24 21:29 07/28/24 23:30 4 MG Tamsulosin HCl (FloMAX) 0.4 mg DAILY PO 07/28/24 09:00 08/27/24 08:59 08/01/24 09:40 0.4 MG Temazepam (restORIL 15 MG CAP) 15 mg HS PRN PO INSOMNIA/SLEEP 07/27/24 21:30 08/26/24 21:29 DIAGNOSTICS / RADIOLOGY: [ ] ASSESSMENT: Nephrolithiasis, POA Mild right hydronephrosis Intractable right flank pain secondary to nephrolithiasis Anemia, POA Acute dehydration (elevated creatinine at 1.4, ketonuria) Acute kidney injury, POA, GFR 68 Proteinuria Hematuria Chronic problem list: DM type 2, hypercholesteremia, hypertension, kidney stones Morbid obesity PLAN: We will continue to monitor the patient on medical floor. Nephrolithiasis, POA Mild right hydronephrosis Continue LR at 100 mL an hour. Continue Flomax 0.4 mg p.o. Daily. Continue to Strain all urine. Renal ultrasound unremarkable CT abdomen and pelvis showed right ureteropelvic junction calculus of 7 mm causing mild right hydronephrosis Urology consult appreciated and recommended IVP which showed obstructive changes with calculus in right ureteropelvic junction measuring 9 mm. Patient had a retrograde placement of stent yesterday. KUB tomography was ordered which showed right renal lower pole calculus measuring 6 mm. right double-J catheter in place. Waiting on further recommendations from Urology Intractable right flank pain secondary to nephrolithiasis Complaining of sharp right flank pain during urination Continue Toradol and [place] as needed for pain Anemia, POA Hemoglobin is 13.9 No further interventions to be done Acute kidney injury, POA, GFR 68 Acute dehydration (elevated creatinine at 1.4, ketonuria) BUN 12 and create down from 1.6 to 1.2 Continue IV fluids Avoid nephrotoxic drugs. Diabetes mellitus type 2 Glucometer checks a.c. and HS with insulin regular sliding scale coverage as needed per protocol. Hypoglycemia protocol Hypertension Pressure in the morning was 161/87 likely because of pain. Continue lisinopril 20 mg p.o. b.i.d. IV hydralazine 10 mg p.r.n. if systolic blood pressure above 160 Hypercholesteremia Continue atorvastatin 40 mg p.o. daily. TSH 1.24 On admission P.r.n. medications for: Pain management, nausea, vomiting fever, hypertension, constipation GI and DVT prophylaxis: Pepcid. Discontinue Lovenox and SCDs for DVT prophylax LUÍS SINGH MD August 01, 2024 15:19
[2024-08-02] VITALS: BP 139/73; PULSE 73; RESP 18; TEMP 98
--- NOTE | 2024-08-02 01:31 | NUR ---
SPOKE TO DR. BAY ON THE FLOOR. ASKED DR BAY IF HE WAS GOING TO ROUND ON THE PATIENT. PER PHU, HE'S ALREADY MADE DR DOUGLAS AWARE THAT HE'S SIGNED OFF ON THE CASE. DR. BAY STATES THAT PER LAST CT ABD/PELV ON 07/30 SHOWS NO MORE RENAL STONE. PHU STATES THAT PATIENT IS TO F/U WITH HIM IN HIS OFFICE AFTER DISCHARGE.
[2024-08-02 04:03] VITALS: BP 140/91; PULSE 67; RESP 17; TEMP 98.1
[2024-08-02 08:00] VITALS: BP 126/88; PULSE 56; RESP 17; TEMP 97.8; O2SAT 94
[2024-08-02 12:00] VITALS: BP 128/87; PULSE 68; RESP 18; TEMP 98.5
--- NOTE | 2024-08-02 12:43 | PN ---
[facility] PROGRESS NOTE Date of Service: August 02, 2024 Time of Service: 12:25 SUBJECTIVE: Mr. Mckeon is a morbidly obese 34-year-old male with with history of morbid obesity, DM type 2, hypercholesteremia, hypertension, kidney stone presented to ED for evaluation of right flank pain. The patient was seen at an emergency department in [facility] 2 days back where he was diagnosed with a 7 mm stone in the right ureter. He was discharged home on pain medication that has not helped him over the last 24 hours. He reports today with increased pain which prompted the ED admission. The patient denied any other pain, problem or concern. Renal sonogram: No sonographic evidence for hydronephrosis or any evidence to s uggest pyelonephritis. In ED the patient was administered NS1 L bolus, Dilaudid 1 mg IV, morphine 2 mg IV, and Toradol 15 mg IV. Patient was admitted with the diagnosis intractable abdominal pain and right ureteral stone. 07/28/24 patient was seen and examined today morning. His family is at the bedside. He does not have the flank pain at the moment. He received IV Toradol for the pain. He denies hematuria. CT abdomen and pelvis showed right ureteropelvic junction calculus measuring 7:00 a.m. causing mild right hydronephrosis. Vitals are stable. Kidney functions are improving. Creatinine went down from 1.4 to 1.3. Urology consult requested and pending evaluation. 07/29/24 patient was seen and examined. He is complaining of right flank pain and pain scale is 6/10. He denies nausea, vomiting, hematuria or fever. Urology consult with Dr. Bay appreciated and ordered IVP which showed obstructive changes and calculus in right ureteropelvic junction measuring 9 mm. Pending on further recommendations from Urology. Patient remains NPO until we are hear back the plan from Urology. 07/30/24 the patient was seen and examined. He is complaining of sharp right flank pain when he urinates. The pain seemed to be resolving after urinating. He also had hematuria after retrograde stent placement. Blood pressure was 161/87 today morning. Urine culture showed no growth. Kidney functions back to normal with BUN12 and creatinine 1.2. Patient had a the trocar placement of stent yesterday. KUB tomography was ordered by Dr. Bay today morning, which showed right renal lower pole calculus measuring 6 mm. Right double-J catheter in place. Pending further plan from Urology. patient was seen and examined. His only complaint is transient but significant pain when he urinates. He is status post Cystoscopy. * Retrograde pyelography on the right. * Retrograde placement of double-J stent 6-[place] 26 cm double-J stent. 08/01 patient was seen and examined case discussed with the RN. He continues to have pain while urinating otherwise doing okay. He wants to talk with the urologist about his follow up plan 08/02/24: Lying in bed as the time of evaluation, alert and oriented and in no obvious distress appears. The patient is status post stent placement on 07/30/2023 .Continues with pain with urination. Denies any fever, chills, chest pain, shortness of breath or palpitations. Patient is hemodynamically stable T 97.9, P 56, BP 126/88. Urology has signed off already, plan is for patient to follow in the clinic as an outpatient. REVIEW OF SYSTEMS CONSTITUTIONAL: Denies fevers, chills, or night sweats. No unintentional weight loss reported. NEUROLOGICAL: Denies headache, amaurosis fugax, motor weakness, sensory deficit, vertigo/spinning sensation, gait abnormalities, or tremors. ENT: No hearing loss, otalgia, otorrhea, rhinitis, rhinorrhea, hoarseness, or sore throat. CARDIOVASCULAR: Denies any exertional angina, dyspnea on exertion, orthopnea, paroxysmal nocturnal dyspnea, palpitations, life-threatening arrhythmias, claudication. Complains of chest discomfort PULMONARY: Denies any shortness of breath, cough, phlegm/sputum, hemoptysis, pleuritic chest pain. SLEEP: Denies morning headaches, daytime somnolence or napping. Denies difficulty falling asleep, staying asleep, waking from sleep. Denies knowledge of snoring. GASTROINTESTINAL: Denies any type of dysphagia to either liquids or solids. Denies nausea, vomiting, pyrosis, early satiety, abdominal pain, diarrhea, constipation, or changes in stool consistency or caliber. Denies coffee-ground emesis, hematemesis, hematochezia, or melanotic stools. GENITOURINARY: Denies frequency, urgency, nocturia, hematuria or incontinence (Storage/Irritative symptoms.) Low urinary stream, straining to void, urinary intermittency or hesitancy, splitting of the voiding stream, terminal dribbling. Dysuria ENDOCRINOLOGIC: Denies polyuria, polydipsia, polyphagia or heat/cold intolerances. HEMATOLOGIC: Denies thrombophilia/previous clots, or coagulopathy/bleeding disorders. ONCOLOGIC: Denies personal history of malignancy. DERMATOLOGIC: Denies rashes or pruritus. PSYCHIATRIC: Denies any suicidal or homicidal ideation. Denies hallucinations. PHYSICAL EXAM GENERAL APPEARANCE: The patient is awake, alert, and oriented, in no acute cardiopulmonary distress. NEUROLOGICAL: Cranial nerves II-XII grossly intact. Motor is 5/5 in bilateral upper and lower extremities proximal to distal. No sensory deficits. HEENT: Face is symmetric. Pupils are equal and reactive. Extraocular movements are intact. NECK: Supple. No JVD. No thyromegaly. No submental, submandibular, pre- /postauricular, occipital or supraclavicular lymphadenopathy. CHEST: Normal chest expansion. No Telemetry. LUNGS: Absence of any rales, rhonchi or any wheezing. CARDIOVASCULAR: Regular. S1 and S2 normal. No appreciable rubs, murmurs or gallops. ABDOMEN: Morbid obese. Soft, nontender, and nondistended. There is no rebound, voluntary guarding, or rigidity. : Deferred. No Hernandez. EXTREMITIES: Non-edematous and not cyanotic. No clubbing. Good capillary refill. SKIN: No skin breakdown. Vital Signs (last 8hr) Date Time Temp Pulse Resp B/P (MAP) Pulse Ox O2 Delivery O2 Flow Rate FiO2 08/02/24 08:00 97.9 56 17 126/88 94 Room Air 08/02/24 08:00 94 Room Air* 0 21 LABS: Laboratory: Test 08/02/24 11:56 07/31/24 15:53 Range/Units Whole Blood Glucose 139 #H 70-110 MG/DL Bedside Glucose Comment Notified Nurse Current Medications Medications (Trade) Dose Ordered Sig/Melita Route PRN Reason Start Time Stop Time Status Last Admin Dose Admin Acetaminophen (TYLenol 325MG TAB) 650 mg Q6H PRN PO FEVER/MILD PAIN LEVEL 1-3 07/27/24 21:30 08/26/24 21:29 Acetaminophen (TYLenol 650MG SUPPOSITORY) 650 mg Q6H PRN RC FEVER / MILD PAIN 1-3 IF NPO 07/27/24 21:30 08/26/24 21:29 Acetaminophen/ Hydrocodone Bitart (NORco 5/325MG) 1 tab Q6H PRN PO PAIN LEVEL 4 TO 6 07/27/24 21:30 08/01/24 21:29 DC 07/28/24 18:35 1 TAB Acetaminophen/ Hydrocodone Bitart (NORco 5/325MG) 2 tab Q6H PRN PO 710 07/27/24 22:00 08/01/24 21:59 DC 07/29/24 20:51 2 TAB Atorvastatin Calcium (LIPItor 40MG) 40 mg HS PO 07/28/24 21:00 08/27/24 20:59 08/01/24 20:20 40 MG Docusate Sodium (COLace 100MG CAP) 100 mg BID PRN PO c 07/27/24 21:30 08/26/24 21:29 Enoxaparin Sodium (Lovenox) 40 mg DAILY SQ 07/28/24 09:00 07/29/24 12:47 DC 07/28/24 08:27 40 MG Famotidine (Pepcid 20mg Tab) 20 mg BID PO 07/28/24 09:00 08/27/24 08:59 08/02/24 09:15 20 MG Insulin Human Regular (humuLIN R 100 UNIT/ML 3ML) INSULIN SLIDING SCAL... ACHS SQ 07/28/24 07:30 08/27/24 07:29 Ketorolac Tromethamine (toRADol) 30 mg Q6H PRN IM SEVERE PAIN (7-10) 07/28/24 01:00 07/28/24 02:42 DC Ketorolac Tromethamine (toRADol) 30 mg Q6H PRN IV SEVERE PAIN (7-10) 07/28/24 05:00 08/02/24 04:59 DC 07/29/24 13:55 30 MG Ketorolac Tromethamine (toRADol) 30 mg Q6H PRN IV SEVERE PAIN (7-10) 07/28/24 07:00 07/28/24 05:17 DC Labetalol HCl (TRANdate 20MG SYG) 10 mg Q2H PRN IV SBP GREATER THAN 160 07/27/24 21:30 08/26/24 21:29 Lactated Ringer's 1,000 ml @ 100 mls/hr Q10H IV 07/27/24 21:30 08/26/24 21:29 08/01/24 20:20 100 MLS/HR Lactulose (Constulose 20gm/ 30ml Udcup) 20 gm Q6H PRN PO CONSTIPATION 07/27/24 21:30 08/26/24 21:29 07/28/24 18:37 20 GM Lisinopril (Prinivil 20mg) 20 mg BID PO 07/28/24 09:00 08/27/24 08:59 08/02/24 09:15 20 MG Ondansetron HCl (zoFRAN 4MG INJ) 4 mg Q6H PRN IVP NAUSEA/VOMITING 07/27/24 21:30 08/26/24 21:29 07/28/24 23:30 4 MG Tamsulosin HCl (FloMAX) 0.4 mg DAILY PO 07/28/24 09:00 08/27/24 08:59 08/02/24 09:14 0.4 MG Temazepam (restORIL 15 MG CAP) 15 mg HS PRN PO INSOMNIA/SLEEP 07/27/24 21:30 08/26/24 21:29 DIAGNOSTICS / RADIOLOGY: PATIENT: CHASIDY MCKEON MR#: [id number] : 1990 SEX: M AGE: 34 LOCATION: [facility] ORDER 1212 STATUS: ADM IN REPORT#: [id number] SERVICE 1151 REASON: kidney stone protocol, compare to previous ORDERING PHYSICIAN: ADA BAY MD PROCEDURE: ABD PEL WO - CT ABDOMEN/PELVIS W/O CONTRAST Exam Type: CT ABDOMEN/PELVIS W/O CONTRAST Clinical Information: kidney stone protocol, compare to previous Comparison: None CT Dose Index (CTDI): 10.20 mGy Dose Length Product (DLP): 530.00 total mGy-cm PROTOCOL: Routine noncontrast helical scanning of the abdomen and pelvis was performed at 5mm collimation. Findings: No evidence of nephro or ureterolithiasis is found. No hydronephrosis or ureteral dilatation is seen. Right double-J catheter in place. The lung bases are clear. The stomach is unremarkable. It shows no wall thickening. No gross ulceration is seen. It is not overly distended. There are no surrounding inflammatory changes. No wall lesions are identified to suggest cancer. The spleen is unremarkable. It is not enlarged. The pancreas shows normal anatomy. It is not fatty replaced. It shows no lesions. The pancreatic duct is not dilated. The gallbladder is unremarkable. It shows no cholelithiasis. The gallbladder wall is normal in thickness. There is no pericholecystic fluid. The is no acute or chronic inflammation noted. The adrenal glands are unremarkable. There is no enlargement. No lesions are noted. The liver is unremarkable. It shows no focal masses. The appendix is unremarkable. It shows no evidence of inflammation. No appendicolith is seen. The small bowel is unremarkable. There is no evidence of dilatation to suggest obstruction. No evidence of adynamic ileus is seen. There is no small bowel wall thickening to suggest enteritis. The colon is unremarkable. The urinary bladder is unremarkable. There is no wall thickening to suggest tumor or inflammation. There are no intraluminal calculi. There are no diverticula. There is no evidence of chronic bladder outlet obstruction. There is no evidence of urinary bladder distention to suggest urinary retention. The other pelvic structures are unremarkable. The bony and vascular structures are unremarkable for the patient's age. IMPRESSION: NEGATIVE CT SCAN OF THE ABDOMEN AND PELVIS. NO RENAL STONES. NO ACUTE PATHOLOGY OR INFLAMMATION SEEN. This study was performed using dose reduction techniques to include automated exposure control and/or adjustment of the mA and/or kV according to patient size. DICTATED BY: ELENA STRONG MD DATE: 07/30/24 1306 ELECTRONICALLY SIGNED BY: ELENA STRONG MD DATE: 07/30/24 1311 ASSESSMENT: Nephrolithiasis, POA Mild right hydronephrosis Intractable right flank pain secondary to nephrolithiasis Anemia, POA Acute dehydration (elevated creatinine at 1.4, ketonuria) Acute kidney injury, POA, GFR 68 Proteinuria Hematuria Chronic problem list: DM type 2, hypercholesteremia, hypertension, kidney stones Morbid obesity PLAN: Discharge patient at this time. Instructed to call Dr Bay's office for an appointment. Verbalized understanding of instructions. Nephrolithiasis, POA Mild right hydronephrosis Continue Flomax 0.4 mg p.o. Daily. Continue to Strain all urine. Renal ultrasound unremarkable CT abdomen and pelvis showed right ureteropelvic junction calculus of 7 mm causing mild right hydronephrosis Urology consult appreciated and recommended IVP which showed obstructive changes with calculus in right ureteropelvic junction measuring 9 mm. Patient had a retrograde placement of stent yesterday. KUB tomography was ordered which showed right renal lower pole calculus measuring 6 mm. right double-J catheter in place Intractable right flank pain secondary to nephrolithiasis Complaining of sharp right flank pain during urination Continue Toradol and [place] as needed for pain Anemia, POA Hemoglobin is 13.9 No further interventions to be done Acute kidney injury, POA, GFR 68 Acute dehydration (elevated creatinine at 1.4, ketonuria) BUN 12 and create down from 1.6 to 1.2 Continue IV fluids Avoid nephrotoxic drugs. Diabetes mellitus type 2 Glucometer checks a.c. and HS with insulin regular sliding scale coverage as needed per protocol. Hypoglycemia protocol Hypertension Pressure in the morning was 161/87 likely because of pain. Continue lisinopril 20 mg p.o. b.i.d. IV hydralazine 10 mg p.r.n. if systolic blood pressure above 160 Hypercholesteremia Continue atorvastatin 40 mg p.o. daily. TSH 1.24 On admission P.r.n. medications for: Pain management, nausea, vomiting fever, hypertension, constipation GI and DVT prophylaxis: Pepcid. Discontinue Lovenox and SCDs for DVT prophylax ATTESTATION BY PHYSICIAN I have seen and examined the patient. I reviewed the documentation, medical decision making, and treatment plan as noted by the resident provider above. I agree with the findings and plan of care. Aarti Lee MD OBISOHAIL MD August 02, 2024 12:43
--- NOTE | 2024-08-02 12:53 | DS ---
Discharge Summary Hospital Course Summary: Patient Information: *Name:Nba Hodge *Date of :[birth year] *Admission Date:07/30/24 *Discharge Date:08/02/24 Attending Physician: Dr Jorge Lee In measuring endplate Admitting Diagnosis: Right Nephrolithiasis Discharge Diagnosis: Right Nephrolithiasis Course in Hospital: Patient was admitted to the hospital on 07/30/2024 with symptoms of right flank pain. A CT abdomen and pelvis done in the ED, showed right ureteropelvic junction calculus measuring7 mm and causing mild right hydronephrosis. A urorology consult was placed and Dr Malik ordered an IVP which showed obstructive changes and calculus in the right ureteropelvic junction measuring 9 mm. Patient had a trocar placement of stent and a right double -J catheter placed. No Over the course of his hospitalization, his symptoms improved significantly improved. having just slight pain on voiding . Plan is to discharge patient with Flomax 0.4mg and have him follow up with Dr Malik as an outpatient. Procedures performed: Right stent placement Medications on Discharge: Flomax 0,4mg, Atorvastatin 40mg, Lisinopril 20mg , Labetalol 10mg Discharge Instructions: *Follow up with your Urologist Dr Malik in 2 - 3 days after discharge for further evaluatuion and management *Continue all medications as prescribed. Do not discontinue or change dosages without consulting your PCP. *Gradually resume normal activities as tolerated. *Continue a balanced diet . Reduce salt intake to help manage BP. *Seek immediate medical attention if you experience chest pain, SOB or severe headache. *Smoking cessation is strongly advised. Resources for quitting smoking are available upon request. Discharged to: Home Condition on Discharge: [employer] Reporter(s): Urologist: Dr Malik Procedure(s): Right Stent placement Assessment/Plan: ASSESSMENT: Nephrolithiasis, POA Mild right hydronephrosis Intractable right flank pain secondary to nephrolithiasis Anemia, POA Acute dehydration (elevated creatinine at 1.4, ketonuria) Acute kidney injury, POA, GFR 68 Proteinuria Hematuria Chronic problem list: DM type 2, hypercholesteremia, hypertension, kidney stones Morbid obesity PLAN: Discharge patient at this time. Instructed to call Dr Malik's office for an appointment. Verbalized understanding of instructions. Nephrolithiasis, POA Mild right hydronephrosis Continue Flomax 0.4 mg p.o. Daily. Continue to Strain all urine. Renal ultrasound unremarkable CT abdomen and pelvis showed right ureteropelvic junction calculus of 7 mm causing mild right hydronephrosis Urology consult appreciated and recommended IVP which showed obstructive changes with calculus in right ureteropelvic junction measuring 9 mm. Patient had a retrograde placement of stent yesterday. KUB tomography was ordered which showed right renal lower pole calculus measuring 6 mm. right double-J catheter in place Intractable right flank pain secondary to nephrolithiasis Complaining of sharp right flank pain during urination Continue Toradol and [place] as needed for pain Anemia, POA Hemoglobin is 13.9 No further interventions to be done Acute kidney injury, POA, GFR 68 Acute dehydration (elevated creatinine at 1.4, ketonuria) BUN 12 and create down from 1.6 to 1.2 Continue IV fluids Avoid nephrotoxic drugs. Diabetes mellitus type 2 Glucometer checks a.c. and HS with insulin regular sliding scale coverage as needed per protocol. Hypoglycemia protocol Hypertension Pressure in the morning was 161/87 likely because of pain. Continue lisinopril 20 mg p.o. b.i.d. IV hydralazine 10 mg p.r.n. if systolic blood pressure above 160 Hypercholesteremia Continue atorvastatin 40 mg p.o. daily. TSH 1.24 On admission P.r.n. medications for: Pain management, nausea, vomiting fever, hypertension, constipation GI and DVT prophylaxis: Pepcid. Discontinue Lovenox and SCDs for DVT prophylax Discharge Instructions: Discharge Instructions: *Follow up with your Urologist in 2 - 3 days after discharge. *Continue all medications as prescribed. Do not discontinue or change dosages without consulting your PCP. *Gradually resume normal activities as tolerated. *Continue a balanced diet . Reduce salt intake to help manage BP. *Seek immediate medical attention if you experience chest pain, SOB or severe headache. *Smoking cessation is strongly advised. Resources for quitting smoking are available upon request. Home Medications: Reported Medications Naproxen (Naproxen) 500 Mg Tablet, 1 TAB PO BID PRN for PAIN 07/28/24 Tamsulosin HCl (Flomax) 0.4 Mg Cap.er.24h, 1 CAP PO DAILY 07/28/24 Atorvastatin Calcium (Atorvastatin Calcium) 20 Mg Tablet, 1 TAB PO DAILY 07/28/24 Lisinopril (Lisinopril) 20 Mg Tablet, 1 TAB PO DAILY 07/28/24 Metformin HCl (Metformin HCl ER) 500 Mg Tab.er.24h, 1 TAB PO BIDMEALS 07/28/24 Time spent arranging discharge: 1-30 minutes ATTESTATION BY PHYSICIAN I have seen and examined the patient. I reviewed the documentation, medical decision making, and treatment plan as noted by the resident provider above. I agree with the findings and plan of care. Aarti Lee MD OBI,SOHAIL Mercado MD August 02, 2024 12:53
--- NOTE | 2024-08-02 14:49 | NUR ---
Discharge Patient instructed on discharge and new medications. Mother by his side. Spoke to Tonya with Dr. Malik's office. Patient to follow up with [place] 08/11/24 at 0830. Patient verbalized he will be going straight to PCP after discharge.
== END 2024-08-02 14:45 | disposition home or self-care (01) | DRG 660 ==
LOC: EDH 17:40 → EDHIP 20:54 → 4AH 07-28 00:47
PROVIDERS: ADMIT Internal Medicine; ATTEND Internal Medicine
PROC: 0T768DZ Dilation of Right Ureter with Intraluminal Device, Via Natural or Artificial Opening Endoscopic (ICD-10-PCS; principal; 2024-07-27)
PROC: BT1D1ZZ Fluoroscopy of Right Kidney, Ureter and Bladder using Low Osmolar Contrast (ICD-10-PCS; 2024-07-27)
DX: N13.2 Hydronephrosis with renal and ureteral calculous obstruction (principal); Z68.43 Body mass index [BMI] 50.0-59.9, adult; N17.9 Acute kidney failure, unspecified; D64.9 Anemia, unspecified; E86.0 Dehydration; R82.4 Acetonuria; E78.00 Pure hypercholesterolemia, unspecified; I10 Essential (primary) hypertension; E11.9 Type 2 diabetes mellitus without complications; E66.01 Morbid (severe) obesity due to excess calories; R80.9 Proteinuria, unspecified; N40.0 Benign prostatic hyperplasia without lower urinary tract symptoms; Z87.442 Personal history of urinary calculi; Z79.899 Other long term (current) drug therapy
CPT/HCPCS: 36415; 74018; 74176; 74400; 74420; 76100; 76770; 76775; 80048; 81001; 82948; 83605; 83735; 84100; 84443; 85025; 85027; 85610; 85730; 87086; 93005; 99285; A4354; C1758; C1769; C2617; G0378; J0330; J0696; J1100; J1171; J1650; J1885; J2003; J2250; J2405; J2704; J3010; J3490; J7120; Q9967; A4358